=== PATIENT | male | born 1945 | race Caucasian/White ===

== ENCOUNTER → 2019-01-05 | Outpatient (CLI) | payer MEDICARE, BC, SELFPAY ==
[2018-12-26 08:29] VITALS: BMI 34.2
[2019-01-05 11:18] LABS: Absolute Lymphocyte Count 0.92 X10^3/uL (0.83-4.51); Absolute Neutrophil Count 3.7 X10^3/uL (2.0-7.7); Basophil# 0.01 X10^3/uL; Basophil% 0.2 % (0-1); Eosinophil# 0.02 X10^3/uL; Eosinophils% 0.3 % (0-5); Hematocrit 42.1 % (40-54); Hemoglobin 14.2 g/dL (13.0-16.5); Lymphocyte # 0.92 X10^3/ul (4.0); Lymphocyte % 15.2 % (19-41); Mean Corp Hgb Conc 33.7 g/dL (32-36); Mean Corpuscular Hgb 30.7 pg (27.0-32.0); Mean Corpuscular Volume 90.9 fL (80-94); Mean Platelet Vol. 10.8 fl (6.2-12.0); Monocyte# 1.36 X10^3/uL; Monocyte% 22.4 % (0-10); NRBC Flagged by Analyzer 0 % (0-5); Neutrophil # 3.73 X10^3/uL (2.7-7.7); Neutrophil % 61.4 % (47-70); Platelet Count 133 K/mm3 (150-450); RBC Distribution Width CV 15.9 % (11.6-14.6); RBC Distribution Width SD 51.6 fl (35.1-43.9); Red Blood Count 4.63 M/mm3 (4.6-6.2); White Blood Count 6.1 K/mm3 (4.4-11.0)
== END | disposition home or self-care (01) ==
PROVIDERS: Family Provider Family Medicine; PCP Family Medicine
DX: C7A.8 Other malignant neuroendocrine tumors (principal); C73 Malignant neoplasm of thyroid gland
CPT/HCPCS: 36415; 85025

== ENCOUNTER 2019-01-10 08:14 | Emergency (ER) | payer MEDICARE, BC, SELFPAY ==
[2018-12-26 08:29] VITALS: BMI 34.2
[2019-01-10] VITALS (7 sets, daily range): BP systolic 115–136; BP diastolic 64–106; PULSE 62–63; RESP 15–18; TEMP 36.9; O2SAT 97–99; BMI 34.3
--- NOTE | 2019-01-10 08:39 | RAD_ITS ---
STUDY: X-RAY CHEST REASON FOR EXAM: Male, 73 years old. Chest pain and indigestion for one week. TECHNIQUE: Single AP portable view of the chest. COMPARISON: Prior comparison studies are not available for review at this time. FINDINGS: Vague density overlying the anterior right fourth rib likely due to summation of shadows. No focal infiltrate is seen. There is no demonstrated pleural abnormality. Normal size heart. Normal mediastinum and ramos. Normal visualized pulmonary arteries. Normal visualized aortic arch and descending thoracic aorta. The thoracic spine is not well-visualized. Normal visualized ribs, clavicles, and shoulders. There is no demonstrated abnormality of the visualized soft tissue structures of the upper abdomen. RAD/Chest 1 View (Portable) IMPRESSION: No active pulmonary disease. Electronically Signed: Alvaro Gallo MD at 9:11 EDT Tel , Service support ,
--- NOTE | 2019-01-10 08:39 | EKG12_ITS ---
Test Reason : REPEAT Blood Pressure : / mmHG Vent. Rate : 059 BPM Atrial Rate : 300 BPM P-R Int : 000 ms QRS Dur : 086 ms QT Int : 418 ms P-R-T Axes : 037 009 019 degrees QTc Int : 413 ms Atrial FLutter with paced rhythm and NSR Otherwise normal ECG Confirmed by TAMMY FORTE, AV ([id number]), international editorial producer LUIS DANIEL BRAVO ([id number]) on 01/12/2019 11:42:21 AM Referred By: YUMIKO Confirmed By:AV MUNOZ MD
[2019-01-10 08:53] LABS: Absolute Lymphocyte Count 0.84 X10^3/uL (0.83-4.51); Absolute Neutrophil Count 3.1 X10^3/uL (2.0-7.7); Basophil# 0.02 X10^3/uL; Basophil% 0.4 % (0-1); Eosinophil# 0.59 X10^3/uL; Eosinophils% 10.7 % (0-5); Hematocrit 38.9 % (40-54); Lymphocyte # 0.84 X10^3/ul (4.0); Lymphocyte % 15.2 % (19-41); Mean Corp Hgb Conc 33.4 g/dL (32-36); Mean Corpuscular Hgb 30.9 pg (27.0-32.0); Mean Corpuscular Volume 92.4 fL (80-94); Mean Platelet Vol. 9.9 fl (6.2-12.0); Monocyte# 0.96 X10^3/uL; Monocyte% 17.4 % (0-10); NRBC Flagged by Analyzer 0 % (0-5); Neutrophil # 3.09 X10^3/uL (2.7-7.7); Neutrophil % 55.9 % (47-70); Platelet Count 106 K/mm3 (150-450); RBC Distribution Width CV 16.5 % (11.6-14.6); RBC Distribution Width SD 55.4 fl (35.1-43.9); Red Blood Count 4.21 M/mm3 (4.6-6.2); White Blood Count 5.5 K/mm3 (4.4-11.0)
[2019-01-10 09:06] LABS: Anion Gap 9 (5-15); BUN 15 mg/dL (7-18); BUN/Creat Ratio 18.9 RATIO (10-20); Calcium,Total 7.9 mg/dL (8.5-10.1); Chloride 109 mmol/L (98-107); Creatinine, Serum 0.79 mg/dL (0.70-1.30); EST Glomerular Filtration Rate 101 mL/min (>60); Est Glom Filt Rate - Afr Amer 122 mL/min (>60); Estimated Creatinine Clearance 67.98 ml/min; Glucose 306 mg/dL (74-106); Potassium 4.2 mmol/L (3.5-5.1); Sodium Level 141 mmol/L (136-145)
[2019-01-10] MEDS: Mag Hydrox/Al Hydrox/Simeth 30 ML UDC PO (09:20)
--- NOTE | 2019-01-10 09:25 | EKG12_ITS ---
Test Reason : CP Blood Pressure : / mmHG Vent. Rate : 061 BPM Atrial Rate : 061 BPM P-R Int : 174 ms QRS Dur : 092 ms QT Int : 424 ms P-R-T Axes : 022 015 020 degrees QTc Int : 426 ms Normal sinus rhythm Normal ECG Confirmed by TAMMY FORTE, AV ([id number]), editor book LUIS DANIEL BRAVO ([id number]) on 01/12/2019 11:42:32 AM Referred By: NADIA Confirmed By:AV MUNOZ MD
--- NOTE | 2019-01-10 12:44 | ED.VISSUMM ---
- ER Visit Summary Date of Service: 01/10/19 Chief Complaint: Chest pain History of Present Illness: The patient is a 73 M who states for the past week he has had indigestion. He tells me his constant family tells me is been intermittent. They tell me that because at times he does not complain about it. Tells me he has been taking Tums and has been helping. He has not had any problems with food until this morning when he had Cheerios and a banana and felt that his indigestion-like sensation was worse. There is some nitroglycerin with no relief. He has nitroglycerin because he tells me several years ago he was told he had a small heart attack. He had a cardiac cath did not place a stent because it was a small very peripheral artery that was involved. Tells me that he is getting ready to undergo treatment for medullary thyroid cancer. Is a diabetic. He is on Eliquis and has not missed any doses. Denies any shortness of breath or back pain. Notes he has a blood clot in the right leg Physical Examination: Afebrile vital signs are stable Gen: Well-nourished well-developed Head: Normocephalic atraumatic Eyes: Perrl EOMI ENT: TMs clear no rhinorrhea moist mucous membranes Neck: Supple no lymphadenopathy no JVD nontender CVS: Regular rate rhythm no murmurs normal S1-S2 Respiratory: No distress clear to auscultation bilaterally chest nontender Abdomen: Soft nontender nondistended normal bowel sounds no masses Back: Nontender Extremity: Nontender no edema Skin: Normal color no rash Neuro: alert orientated ?3 CN II-XII intact normal strength sensation Psych: Normal affect normal mood Test Results: EKG sinus at a rate of 61. CBC negative chemistries with glucose 306. 2 sets of cardiac enzymes 3 hours apart were negative. Chest x-ray negative. Emergency Department Course and Treatment: Patient received a GI cocktail which helped some. We watched him on the monitor he was apparently changed rhythms. I obtained a repeat EKG/rhythm strip shows him to be going to a junctional rhythm and back into a sinus rhythm. He is on diltiazem 360 mg and metoprolol 50 mg twice a day. I spoke with cardiology and they recommend that he cut his metoprolol to 25 mg twice a day. Patient notes that this is understanding. He is to see cardiology early next week (Saturday or Saturday). The patient most likely does have a degree of indigestion. He does not have any evidence of bleeding. Impression: 1. Chest pain 2. Dysrhythmia This note was generated with [employer] dictation software. It may contain incorrect words, spelling, and punctuation that were not noted in review of the chart prior to signing ED Disposition - Plan for ED Patient: Disposition: Home or Assisted Living Instructions: CHEST PAIN, Uncertain Cause Prescriptions: Sucralfate [Carafate] 1 gm PO 4X/DAY #56 tab Prescription Printed Referrals: Fran Harrison MD [STAFF PHYSICIAN] - As soon as possible Additional Instructions: Decrease your metoprolol to 25 mg twice a day. You need to call the ext js developer office on Saturday and let them know you are to be seen in the next couple days. This was discussed with the on-call ext js developer today.
== END 2019-01-10 12:57 | disposition home or self-care (01) ==
PROVIDERS: Emergency Provider Emergency Medicine; Family Provider Family Medicine; PCP Family Medicine
DX: R07.9 Chest pain, unspecified (principal); I49.9 Cardiac arrhythmia, unspecified; C73 Malignant neoplasm of thyroid gland; E11.9 Type 2 diabetes mellitus without complications; I25.2 Old myocardial infarction; K21.9 Gastro-esophageal reflux disease without esophagitis; I10 Essential (primary) hypertension; Z87.891 Personal history of nicotine dependence; Z86.718 Personal history of other venous thrombosis and embolism; Z79.02 Long term (current) use of antithrombotics/antiplatelets; Z79.84 Long term (current) use of oral hypoglycemic drugs; Z79.899 Other long term (current) drug therapy
CPT/HCPCS: 71045; 80048; 84484; 85025; 93005; 99285; A4216

== ENCOUNTER → 2019-03-18 15:11 | Outpatient (CLI) | payer MEDICARE, BC, SELFPAY ==
[2019-03-18 09:32] VITALS: BMI 30.7
--- NOTE | 2019-03-18 15:16 | RAD_ITS ---
STUDY: X-RAY - THORACIC SPINE REASON FOR EXAM: Male, 73 years old. Back pain for 3 weeks TECHNIQUE: 3 view(s) of the thoracic spine were obtained. COMPARISON: None. FINDINGS: There is an increase in the normal thoracic kyphosis. There is no substantial scoliosis. There is demineralization of the thoracic spine with endplate spondylosis. There is multilevel disc space narrowing of the thoracic spine. No compression fracture. The soft tissue structures are unremarkable. RAD/Thoracic Spine 3 Views IMPRESSION: 1. No compression fracture. 2. Degenerative disc disease. 3. Exaggerated thoracic kyphosis. Electronically Signed: Chago Galvan MD (Brooks) at 16:59 EST , Service support ,
--- NOTE | 2019-03-18 15:20 | RAD_ITS ---
STUDY: X-RAY CHEST REASON FOR EXAM: Male, 73 years old. Cough for 3 weeks TECHNIQUE: PA and lateral views of the chest. COMPARISON: 01/10/2019 FINDINGS: No airspace consolidation, pleural effusion or obvious nodule. There is no demonstrated pleural abnormality. Normal size heart. Normal mediastinum and ramos. Normal visualized pulmonary arteries. There is atherosclerotic calcification of the aortic arch with tortuosity. There are diffuse degenerative changes of the visualized thoracic spine. Old right rib fracture is stable. There is no demonstrated abnormality of the visualized soft tissue structures of the upper abdomen. RAD/Chest PA and Lateral IMPRESSION: No airspace disease or pleural effusion. Stable exam. Electronically Signed: Chago Galvan MD (Brooks) at 16:48 EST , Service support ,
== END ==
PROVIDERS: Family Provider Family Medicine; PCP Family Medicine; Referring Provider Family Medicine; Visit Provider Family Medicine
DX: Z51.11 Encounter for antineoplastic chemotherapy (principal); R05 Cough; M54.6 Pain in thoracic spine; C90.02 Multiple myeloma in relapse; C7A.8 Other malignant neuroendocrine tumors; C73 Malignant neoplasm of thyroid gland
CPT/HCPCS: 71046; 72072; 80053; 82784; 83883; 84550; 85025; 86334; 96376; 96413; 96415; J7040; J7050; A4216; J9145

== ENCOUNTER 2019-03-22 06:35 | Inpatient (IN) | payer MEDICARE, BC, SELFPAY ==
[2019-03-18 09:32] VITALS: BMI 30.7
[2019-03-22] VITALS (40 sets, daily range): BP systolic 80–127; BP diastolic 47–91; PULSE 115–159; RESP 12–30; TEMP 36.4–38.1; O2SAT 86–100; BMI 30.9; BMI 30.7
--- NOTE | 2019-03-22 06:42 | EKG12_ITS ---
Test Reason : DYSRHYTHMIA Blood Pressure : / mmHG Vent. Rate : 148 BPM Atrial Rate : 141 BPM P-R Int : 000 ms QRS Dur : 090 ms QT Int : 286 ms P-R-T Axes : 000 055 014 degrees QTc Int : 449 ms Atrial fibrillation with rapid ventricular response Septal infarct , age undetermined Abnormal ECG Confirmed by TAMMY FORTE, AV ([id number]), editor sound LUIS DANIEL BRAVO ([id number]) on 03/23/2019 2:51:48 PM Referred By: Birdie Urban Confirmed By:AV MUNOZ MD
--- NOTE | 2019-03-22 06:44 | ED.VIS.DYS ---
History of Present Illness Chief Complaint: Shortness of Breath Informant: Patient, EMS Onset: Days - 2-3 Activity at onset: - - gradual onset, worsening Quality: - - short of breath Current Severity: Severe Maximum Severity: Severe Worsened by: Coughing, Exertion Relieved by: Nothing Associated Symptoms: Cough. Negative for: Rhinorrhea, Sore throat Chest Pain: None Narrative: Fell like he was developing a respiratory infection and saw his doctor with a chest x-ray the day before yesterday, it was unremarkable. He feels like he is getting worse. He has no history of chronic lung disease and is on no oxygen at home. No swelling in his legs or orthopnea. He has a history of heart disease, states he had a heart attack for which a stent was not indicated in 2004. Denies any chest pain. 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 tumor KRAS mutated. 06/2016 left upper lobectomy and LN dissection (per note from Dr Nicolas) (6) Multiple myeloma in relapse Status: Chronic (7) Paroxysmal atrial fibrillation Status: Chronic (8) Thyroid cancer Status: Chronic (9) History of non-ST elevation myocardial infarction (NSTEMI) Status: Resolved Past Medical History - Allergies and Home Meds Allergies/Adverse Reactions: Allergies No Known Allergies Allergy (Verified 03/22/19 06:45) Primary Care Physician: Mohamud Guzman MD [Primary Care Provider] - Smoking Status: Former smoker Drugs: None Review of Systems General: Reports: Malaise. Denies: Chills, Fever, Sweats Eyes: Denies: Visual changes - bilaterally, Diplopia ENT: Denies: Bilateral ear pain, Rhinorrhea, Sore throat Cardiovascular: Denies: Chest pain, Palpitations Respiratory: Reports: Dyspnea, Cough, Dyspnea on exertion. Denies: Sputum Gastrointestinal: Reports: Nausea. Denies: Abdominal pain, Vomiting, Diarrhea, Melena, Hematochezia Genitourinary: Denies: Dysuria, Hematuria, Frequency Musculoskeletal: Denies: Neck pain, Back pain, Swelling, Extremity Pain Skin: Denies: Rash, Wounds Neurological: Denies: Headache, Weakness, Numbness Physical Exam Inital Vital Signs reviewed: Yes General: Well nourished, Well developed, Acute Distress - respiratory Head: Normocephalic, Atraumatic Eyes: Perrl, EOMI ENT: Moist mucous membranes, No rhinorrhea Neck: Supple, Nontender, No lymphadenopathy, No JVD Cardiovascular: No murmurs, Irregular, Tachycardia Respiratory: Chest nontender, Rales - left base, Wheezing - mild expiratory diffusely, - - Respiratory distress, speaking in 3-5 word sentences Abdomen: Soft, Nontender, Nondistended, Normal bowel sounds. Negative for: Pulsatile mass Back: Nontender, Normal Inspection Extremities: Nontender, No edema. Negative for: Calf Tenderness Skin: Normal color, No rash, No Trauma Neurological: Alert, Oriented x3, Cranial nerves II-XII grossly intact, Normal Strength, Normal Sensation Psychological: Normal affect, Normal Mood Diagnostic/Tx/Re-eval Impressions Chest X-Ray 03/22/19 06:47 IMPRESSION: Interval development of airspace disease in the lower lobes. Electronically Signed: Shahriar Vijay, at 7:09 EST Tel , Service support , 03/22/19 06:47 Chest 1 View (Portable) [RAD] Stat Laboratory Results 03/22/19 03/22/19 03/22/19 06:55 06:55 06:55 WBC 3.4 L RBC 4.68 Hgb 14.8 Hct 43.3 MCV 92.5 MCH 31.6 MCHC 34.2 RDW Std Deviation 65.6 H RDW Coeff of Mary [place] 19.4 H Plt Count 108 L MPV 10.1 Immature Gran % (Auto) 0.900 Neut % (Auto) 28.0 L Lymph % (Auto) 58.4 H [place] % (Auto) 10.3 H Eos % (Auto) 2.1 Baso % (Auto) 0.3 Absolute Neuts (auto) 1.0 L Absolute Lymphs (auto) 1.99 Nucleated RBC % 0 Specimen Type Sample Site pH Bicarbonate Actual POC Total CO2 Base Excess O2 Saturation ABG pCO2 ABG pO2 Hugo Test O2 Delivery Device Liter Flow Blood Gas Notified Whom Blood Gas Notified Time Sodium 138 Potassium 3.9 Chloride 107 Carbon Dioxide 19.0 L Anion Gap 12 BUN 18 Creatinine 1.03 Estim Creat Clear Calc 66.00 Est GFR (MDRD) Af Amer 90 Est GFR (MDRD) Non-Af 75 BUN/Creatinine Ratio 17.5 Glucose 124 H Lactic Acid 3.9 H Calcium 7.6 L Total Bilirubin 1.60 H AST 20 ALT 33 Alkaline Phosphatase 122 H Troponin I < 0.015 Total Protein 5.3 L Albumin 2.4 L Globulin 2.9 Albumin/Globulin Ratio 0.8 L 03/22/19 07:08 WBC RBC Hgb Hct MCV MCH MCHC RDW Std Deviation RDW Coeff of Mary Ellen Plt Count MPV Immature Gran % (Auto) Neut % (Auto) Lymph % (Auto) [place] % (Auto) Eos % (Auto) Baso % (Auto) Absolute Neuts (auto) Absolute Lymphs (auto) Nucleated RBC % Specimen Type ART Sample Site L Radial pH 7.49 H Bicarbonate Actual 20.0 L POC Total CO2 21 Base Excess -3 L O2 Saturation 95 ABG pCO2 26.6 L ABG pO2 66 L Hugo Test POS O2 Delivery Device Nasal Can Liter Flow 4.0 Blood Gas Notified Whom ED MD Blood Gas Notified Time 700 Sodium Potassium Chloride Carbon Dioxide Anion Gap BUN Creatinine Estim Creat Clear Calc Est GFR (MDRD) Af Amer Est GFR (MDRD) Non-Af BUN/Creatinine Ratio Glucose Lactic Acid Calcium Total Bilirubin AST ALT Alkaline Phosphatase Troponin I Total Protein Albumin Globulin Albumin/Globulin Ratio - Rhythm Strip Rhythm Strip: A-fib Rate: 140 Ectopy: None - EKG Initial EKG Interpretation: No Acute Injury Pattern, Atrial Fibrillation - w/ RVR Treatment - Dyspnea: Oxygen, Albuterol, Atrovent, Antibiotics - Medical Decision Making Patient is in A. fib with RVR, pressure is borderline. I gave him one breathing treatment to try to avoid BiPAP/respiratory failure, it helped very little and increase his heart rate some, not a lot but he is in the 140-150 range, and his pressure is dropping into the 80s. He is mentating well and keenly alert. His chest x-ray shows obvious pneumonia on the left side. This is a gillis difference compared with his chest x-ray from 2 days ago. ABG shows acute mild respiratory alkalosis without hypercapnia, which is relatively reassuring. I discussed with buckle stringer Dr. Alas, he recommends against giving digoxin for his A. fib with RVR at this time, and just treating his lack of preload with IV fluids for now. He agrees with mechanical ventilation which I am having respiratory starts in the form of BiPAP 01/24. We will continue bolusing him with IV fluids. The rest of the labs are still pending at this time I anticipate ICU admission. ED Disposition - Plan for ED Patient: Disposition: Acute Care Hospital [facility] Diagnosis: Acute respiratory failure with hypoxia, CAP (community acquired pneumonia), Atrial fibrillation with rapid ventricular response, Sepsis due to pneumonia, Severe sepsis Referrals: Mohamud Guzman MD [Primary Care Provider] -
--- NOTE | 2019-03-22 06:47 | RAD_ITS ---
STUDY: X-RAY CHEST REASON FOR EXAM: Male, 73 years old. Shortness of breath TECHNIQUE: Single frontal view of the chest was obtained. COMPARISON: March 18, 2019 FINDINGS: There is been interval development of airspace disease in the lower lobes bilaterally. There is no demonstrated pleural abnormality. Normal size heart. Normal mediastinum and ramos. Normal visualized pulmonary arteries. Normal visualized aortic arch and descending thoracic aorta. Normal visualized thoracic spine. Normal visualized ribs, clavicles, and shoulders. There is no demonstrated abnormality of the visualized soft tissue structures of the upper abdomen. RAD/Chest 1 View (Portable) IMPRESSION: Interval development of airspace disease in the lower lobes. Electronically Signed: Shahriar Linares, at 7:09 EST Tel , Service support ,
[2019-03-22] MEDS: Ipratropium/Albuterol Sulfate 3 ML AMPUL.NEB INHALATION (06:50)
[2019-03-22 07:11] LABS: Allen Test POS; Base Excess -3 mmol/L (-2 to +2); Blood Gas Specimen Type ART; O2 Delivery Device Nasal Can; PO2 66 mmHG (75-100); SITE L Radial; SO2 95 % (95-99); Time Given 700; Total Carbon Dioxide 21 mmol/L; pCO2 26.6 mmHg (35-45); pH 7.49 (7.35-7.45)
[2019-03-22] MEDS: Ondansetron 4 MG/2 ML Vial IV ×2 (07:16→12:43)
[2019-03-22] MEDS: levoFLOXacin IV 750 MG/150 ML BAG 100 MG IV (07:16)
[2019-03-22] MEDS: 0.9% Normal Saline 1,000 ML 999 ML IV ×3 (07:22→09:25)
--- NOTE | 2019-03-22 07:25 | HP.PCM_ITS ---
History of Present Illness Date of Admission: 03/22/19 Chief Complaint: shortness of breath The patient is a 73 year old M with a PMH as listed. He was admitted with a complaint of shortness of breath which had been going on for a couple of days prior to admission. Shortness of breath gradually worsened and he had associated cough which was nonproductive. He had palpitations but denied any fever or chills and denied any chest pain, abdominal pain, lower extremity swelling orthopnea or PND. He decided to come into the ED today as shortness of breath was persistent. He had seen his PCP 2 days prior to admission and had a chest x-ray which was unremarkable. On admission in the ED, vitals were signifi cant for tachycardia and tachypnea and was noted to be in A. fib with RVR with heart rate going up to the 150s. He was requiring 5 L of oxygen. Chemistry was significant for bicarb of 19 and lactic acid of 3.9. Blood pressure was 82/48 at time of review. Chemistry showed white cell count of 3.4 and platelets of 108 was otherwise unremarkable. EKG showed A. fib with RVR. Initial troponin was negative and BNP was only 107.6. Chest x-ray showed interval development of airspace disease in the lower lobes. Patient has been admitted to be managed for septic shock due to community-acquired pneumonia and A. fib with RVR likely precipitated by septic shock. 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 tumor KRAS mutated. 06/2016 left upper lobectomy and LN dissection (per note from Dr Nicolas) Medical History: Medical History (Last Reviewed 03/18/19 @ 09:31 by Nhi Lee) DVT of lower extremity (deep venous thrombosis) (Chronic) Onset Date: 2016 I82.409 right Paroxysmal atrial fibrillation (Chronic) I48.0 Atherosclerotic heart disease [place] coronary artery w/angina pectoris (Chronic) I25.119 History of non-ST elevation myocardial infarction (NSTEMI) (Resolved) Onset Date: 2004 I25.2 Essential (primary) hypertension (Chronic) I10 Hyperlipidemia (Chronic) E78.5 Multiple myeloma in relapse (Chronic) C90.02 Thyroid cancer (Chronic) C73 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 tumor KRAS mutated. 06/2016 left upper lobectomy and LN dissection (per note from Dr Nicolas) Diabetes E11.9 GERD (gastroesophageal reflux disease) K21.9 Gout M10.9 History of chemotherapy Z92.21 Hypothyroidism E03.9 Multiple myeloma C90.00 dx 2016 Muscle cramps R25.2 Vitamin D deficiency E55.9 abnormal PET 12/02/18 [facility] (scanned) Genetic testing Z13.79 underwent germline genetic testing. per Dr Nicolas note Allergies No Known Allergies Allergy (Verified 03/22/19 06:45) Home Medications: Ambulatory Orders Medication Instructions Recorded Albuterol Inhaler [Ventolin Hfa] 108 mcg INHALATION PRN PRN 12/12/18 Allopurinol [Zyloprim] 300 mg PO DAILY 12/12/18 Atorvastatin Calcium [Lipitor] 40 mg PO QHS 12/12/18 Calcitriol 0.25 mcg PO DAILY 12/12/18 Calcium 500-Vit D3 200 Tablet 2 tab PO DAILY 12/12/18 Cholecalciferol (Vitamin D3) 2,000 unit PO DAILY 12/12/18 [Vitamin D3] Desloratadine [Clarinex] 5 mg PO DAILY 12/12/18 Ezetimibe [Zetia] 10 mg PO DAILY 12/12/18 Lansoprazole [Prevacid] 30 mg PO DAILY 12/12/18 Lumigan 0.01% 0.01 % EACH EYE QHS 12/12/18 Nitroglycerin [Nitrostat] 0.4 mg SL PRN PRN 12/12/18 Potassium Chloride [K-Dur] 20 meq PO DAILY 12/12/18 Pregabalin [Lyrica] 50 mg PO BID 12/12/18 Vitamin B Complex [B Complex] 1 tab PO DAILY 12/12/18 Daratumumab [Darzalex] 100 mg IV QMONTH 01/10/19 Diltiazem HCl [Cardizem Cd] 360 mg PO DAILY 01/10/19 Pomalidomide [Pomalyst] 1 mg PO DAILY 01/10/19 Sucralfate [Carafate] 1 gm PO 4X/DAY #56 tab 01/10/19 Valacyclovir HCl [Valtrex] 500 mg PO DAILY 01/10/19 metoprolol tartrate 50 mg tablet 25 mg PO BID tab 01/12/19 levothyroxine 150 mcg tablet 150 mcg PO DAILY #90 tab 01/14/19 Apixaban [Eliquis] 5 mg PO BID 03/22/19 Cometriq 20 mg PO DAILY 03/22/19 Surgical History: Surgical History (Last Reviewed 03/18/19 @ 09:31 by Nhi Lee) 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 H/O thyroidectomy Z90.09 05/2018 History of bronchoscopy Z98.890 03/29/16 06/29/16 08/30/16 10/20/18 History of cataract surgery Z98.49 left 2016 right 2010 History of left heart catheterization Onset Date: 2004 Z98.89 History of pneumonectomy Z98.890, Z90.2 wedge resection left upper lung lobe S/P fine needle aspiration Z98.890 08/2018 mediastinal lymph node 3.1cm revealed neuroendocrine neoplasm positive for synaptophysin and chromagranin, and negative for calcitonin-per note Dr Nicolas history of renal biopsy Lives: Spouse/ Significant Other Smoking Status: Former smoker Alcohol: None Drugs: None - *Family History Maternal Family History: Family History (Last Reviewed 02/19/19 @ 08:41 by Nhi Lee) Mother Hypertension Father Multiple myeloma Review of Systems Constitutional: Reports: Malaise, Weakness, Fatigue. Denies: Anorexia, Chills, Fever Eyes: Denies: Blurred vision HEENT: Denies: Head Aches, Sinus Congestion, Sinus Drainage Cardiovascular: Denies: Chest Pain, Palpitations Respiratory: Reports: Cough, Shortness of Breath, Shortness of breath at rest, Shortness of breath upon exertion, Wheezing. Denies: Pleuritic Pain, Sputum production Gastrointestinal: Denies: Abdominal Pain, Nausea, Vomiting Genitourinary: Denies: Dysuria Musculoskeletal: Denies: Joint Pain, Joint Tenderness Skin: Denies: Rash, Wounds Neurological: Denies: Numbness, Tingling, Focal weakness Psychiatric: Denies: Anxiety, Depression, Homicidal Ideations, Suicidal Ideations Hematologic/ Lymphatic: Denies: Easy Bruising, Easy Bleeding VTE Information - Inpt Only VTE Present on Admission: No VTE Pharm Prophylaxis ordered?: Yes Patient Problems: Active and Suspected Problems (Last Reviewed 03/18/19 @ 09:31 by Nhi Lee) Acute respiratory failure with hypoxia (Acute) CAP (community acquired pneumonia) (Acute) Atrial fibrillation with rapid ventricular response (Acute) Sepsis due to pneumonia (Acute) Severe sepsis (Acute) - Physical Exam Vitals/I&O's: Vital Signs Temp Pulse Resp BP Pulse Ox 98.4 F 159 H 24 H 82/48 L 91 03/22/19 06:37 03/22/19 07:10 03/22/19 07:10 03/22/19 07:10 03/22/19 07:10 Oxygen Flow Rate (L/min) 5 Oxygen Delivery Method Nasal Cannula Weight: 221 lb 5.506 oz Body Mass Index (BMI) 30.9 General: Alert, Oriented x3, Cooperative, - - in moderate respiratory distress HEENT: Atraumatic, PERRLA, EOMI, Normocephalic Oral: Dry Mucosa Neck: Supple, No JVD, Negative Carotid Bruits Lungs: - - decreased breath sounds in all lung landeros, no wheezes or crackles. on CPAP at time of review Cardiovascular: Normal S1, Normal S2, No murmurs, Irregular Rate - Afib with RVR, Tachycardic Abdomen: Bowel Sounds Present, Soft, Non Tender, Non-Distended, No Hepato- splenomegaly Extremities: No clubbing, No cyanosis, No edema, Capillary Refill Less than 3 S econds Skin: No rashes, No breakdown Musculoskeletal: No Tenderness to Palpation of Joints or Extremities Lymphatic: No Cervical, Supraclavicular, or Inguinal Adenopathy Neurological: Cranial nerves II-XII grossly intact, Neuro grossly intact, Motor Exam 5/5 strength throughout Psych/Mental Status: Normal Affect, Appropriate, Alert and oriented to time, place, person, mood and affect Laboratory Results 03/22/19 06:55: WBC Pending, RBC Pending, Hgb Pending, Hct Pending, MCV Pending, MCH Pending, MCHC Pending, RDW Std Deviation Pending, RDW Coeff of [place] Pending, Plt Count Pending, Neut % (Auto) Pending, Absolute Neuts (auto) Pending 03/22/19 06:55: PT Pending, INR Pending, APTT Pending 03/22/19 06:55: Sodium Pending, Potassium Pending, Chloride Pending, Carbon Dioxide Pending, Anion Gap Pending, BUN Pending, Creatinine Pending, Est GFR (MDRD) Af Amer Pending, Est GFR (MDRD) Non-Af Pending, BUN/Creatinine Ratio Pending, Glucose Pending, Calcium Pending, Total Bilirubin Pending, AST Pending, ALT Pending, Alkaline Phosphatase Pending, Troponin I Pending, Total Protein Pending, Albumin Pending 03/22/19 06:55: Lactic Acid Pending 03/22/19 06:55: B-Natriuretic Peptide Pending 03/22/19 07:08: Specimen Type ART, Sample Site L Radial, pH 7.49 H, Bicarbonate Actual 20.0 L, POC Total CO2 21, Base Excess -3 L, O2 Saturation 95, ABG pCO2 26.6 L, ABG pO2 66 L, Hugo Test POS, O2 Delivery Device Nasal Can, Liter Flow 4.0, Blood Gas Notified Whom ED MD, Blood Gas Notified Time 700 Diagnostic Data Chest X-Ray 03/22/19 06:47 IMPRESSION: Interval development of airspace disease in the lower lobes. Electronically Signed: Shahriar Linares, at 7:09 EST Tel , Service support , Current Medications Levofloxacin (Levaquin Iv) 750 mg in 150 mls @ 100 mls/hr IV X1 ONE Stop: 03/22/19 08:12 Last Admin: 03/22/19 07:16 Dose: 100 mls/hr Documented by: Sodium Chloride () 500 mls @ 999 mls/hr IV .Q31M DWAYNE Stop: 03/22/19 08:00 Last Admin: 03/22/19 07:23 Dose: 999 mls/hr Documented by: Sodium Chloride () 1,000 mls @ 999 mls/hr IV .Q1H1M ONE Stop: 03/22/19 08:17 Last Admin: 03/22/19 07:22 Dose: 999 mls/hr Documented by: Assessment/Plan All Active Problems (Last Reviewed 03/18/19 @ 09:31 by Nhi Lee) Acute respiratory failure with hypoxia (Acute) CAP (community acquired pneumonia) (Acute) Atrial fibrillation with rapid ventricular response (Acute) Sepsis due to pneumonia (Acute) Severe sepsis (Acute) Junctional rhythm (Acute 01/10/19) History of non-ST elevation myocardial infarction (NSTEMI) (Resolved 2004) 73 y/o male admitted with a complaint of worsening shortness of breath 1. Acute hypoxic respiratory failure due to community acquired pneumonia * admit to ICU * start on IV ceftriaxone and azithromycin * blood cultures adn respiratory panel obtained; urine for strep and legionella * sputum culture * CXR showed interval development of pneumonia in lower lung landeros * SIRS criteria- 2/4 (tachypnea and tachycardia) * installation and repair technician consulted * titrate oxygen to maintain sats>90% * breathing treatments with duonebs * IV solumedrol * 2. Septic shock due to community acquired pneumonia * BP was in 80s systolic at time of review * lactic acid was 3.9 * hydrate with IVF as per septic shock protocol (30ml/kg) * on IV ceftriaxone and azithromycin * blood, sputum cultures pending. * repeat lactic acid per septic shock protocol * critical; care on board * 3. Afib with RVR * does have a history of Afib * HR was in 150s in ED; EKG showed no actue ST changes * initial troponin was negative * A. fib with RVR likely precipitated by septic shock. * Hydrate as per sepsis protocol with IV fluids. Hold off on Cardizem and metoprolol for now on account of hypotension. * On Eliquis. * 4. Hyperlipidemia: On ezetimibe. 5. Hypothyroidism: On Synthroid. 6. History of multiple myeloma: Currently undergoing treatment. Follow-up with oncologist on discharge. On daratumumab. DVT prophylaxis: on eliquis GI prophylaxis: on PPI Code status: full code * Patient counseled extensively about different types of CODE STATUS including full code, DNR CCA and DNR CCA. Patient elects to be full code. * Total [id number] time 17 minutes. Code Visit Inpatient E&M: 63334 Init Hosp L3 Procedures: 06275 Advncd Care Plan 30 Min
[2019-03-22 07:27] LABS: Absolute Lymphocyte Count 1.99 X10^3/uL (0.83-4.51); Basophil# 0.01 X10^3/uL; Basophil% 0.3 % (0-1); Eosinophil# 0.07 X10^3/uL; Eosinophils% 2.1 % (0-5); Hematocrit 43.3 % (40-54); Hemoglobin 14.8 g/dL (13.0-16.5); Lymphocyte # 1.99 X10^3/ul (4.0); Lymphocyte % 58.4 % (19-41); Mean Corp Hgb Conc 34.2 g/dL (32-36); Mean Corpuscular Hgb 31.6 pg (27.0-32.0); Mean Corpuscular Volume 92.5 fL (80-94); Mean Platelet Vol. 10.1 fl (6.2-12.0); Monocyte# 0.35 X10^3/uL; Monocyte% 10.3 % (0-10); NRBC Flagged by Analyzer 0 % (0-5); Neutrophil # 0.96 X10^3/uL (2.7-7.7); POSITIVE DIFFERENTIAL YES; POSITIVE MORPHOLOGY YES; Platelet Count 108 K/mm3 (150-450); RBC Distribution Width CV 19.4 % (11.6-14.6); RBC Distribution Width SD 65.6 fl (35.1-43.9); Red Blood Count 4.68 M/mm3 (4.6-6.2); White Blood Count 3.4 K/mm3 (4.4-11.0)
[2019-03-22 07:34] LABS: Differential Indicated SCAN CRITERIA MET
[2019-03-22 07:44] LABS: ALB/GLOB Ratio 0.8 RATIO (0.9-2.4); AST(SGOT) 20 U/L (15-37); Alanine Aminotransfer ALT/SGPT 33 U/L (16-61); Albumin, Serum 2.4 g/dL (3.2-5.0); Alkaline Phosphatase 122 U/L (45-117); Anion Gap 12 (5-15); BUN 18 mg/dL (7-18); BUN/Creat Ratio 17.5 RATIO (10-20); Calcium,Total 7.6 mg/dL (8.5-10.1); Chloride 107 mmol/L (98-107); Creatinine, Serum 1.03 mg/dL (0.70-1.30); EST Glomerular Filtration Rate 75 mL/min (>60); Est Glom Filt Rate - Afr Amer 90 mL/min (>60); Globulin 2.9 g/dL (2.2-4.2); Glucose 124 mg/dL (74-106); Potassium 3.9 mmol/L (3.5-5.1); Protein, Total 5.3 g/dL (6.4-8.2); Sodium Level 138 mmol/L (136-145)
[2019-03-22 07:47] LABS: Lactic Acid 3.9 mmol/L (0.4-2.0)
[2019-03-22 07:49] LABS: International Normalized Ratio 1.6; Prothrombin Time (Protime)PT. 18.9 SECONDS (11.7-14.9)
[2019-03-22 07:50] LABS: Partial Thromboplast Time 36.5 Seconds (24.1-36.2)
[2019-03-22 07:51] LABS: Reactive Lymphocyte 1+
[2019-03-22 07:52] LABS: Anisocytosis 2+; Macrocytosis 1+; Microcytosis 1+; Ovalocyte 1+; Platelet Estimate SLT DEC (ADEQ); Poikilocytosis 1+
[2019-03-22 07:53] LABS: Differential Comment SCANNED
--- NOTE | 2019-03-22 07:58 | ED.RN ---
DR ANDRE NOTIFIED BP=88/55, FC=[id number]. 2L NS INFUSED. NEW ORDER RECEIVED FOR A 3RD LITER OF NS.
[2019-03-22 08:39] LABS: BNP,B-Type NATRIURETIC PEPTIDE 107.6 pg/mL (0-100)
[2019-03-22 10:05] LABS: Lactic Acid 2.5 mmol/L (0.4-2.0)
--- NOTE | 2019-03-22 10:09 | CON.PCM_ITS ---
Problem List (1) Acute respiratory failure with hypoxia Status: Acute (2) CAP (community acquired pneumonia) Status: Acute Qualifiers: Laterality: right Lung location: lower lobe of lung Qualified Code(s): J18.9 - Pneumonia, unspecified organism (3) Atrial fibrillation with rapid ventricular response Status: Acute (4) Sepsis due to pneumonia Status: Acute (5) DVT of lower extremity (deep venous thrombosis) Status: Chronic Comment: right (6) Atherosclerotic heart disease [place] coronary artery w/angina pectoris Status: Chronic (7) History of non-ST elevation myocardial infarction (NSTEMI) Status: Resolved (8) Essential (primary) hypertension Status: Chronic (9) Hyperlipidemia Status: Chronic (10) Multiple myeloma in relapse Status: Chronic (11) Thyroid cancer Status: Chronic (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 tumor KRAS mutated. 06/2016 left upper lobectomy and LN dissection (per note from Dr Nicolas) Reason for Consult Date of Consultation: 03/22/19 Reason for Consultation: Respiratory failure History of Present Illness: The patient is a 73 year old M, with past medical history listed below, who presented to [facility] on 03/22/2019 secondary to progressive shortness of breath. Patient reportedly has had a cough for approximately 1 week, but over the last 2 to 3 days has had rapid progression of shortness of breath to the point that he develops symptoms at rest. Patient reportedly has had a cough that is not very productive. Patient denies any rhinorrhea, sore throat and is unclear of fevers. Patient reportedly has his in hospice and is been very stressed recently. Patient reportedly does have a history of a left upper lobe resection secondary to cancer, but is not on supplemental oxygen at baseline. In the ER, patient was noted to be in A. fib with RVR. Chest x-ray was consistent with pneumonia and significantly different from 2 days ago. ABG was consistent with acute hypoxic respiratory failure, so patient was placed on BiPAP therapy. Patient also was noted to be hypotensive and was given 30 cc/kg IV fluids with improvement in blood pressure. Patient was admitted to the intensive care unit for further evaluation. Patient reports that he had seen his primary care physician in the last week with these symptoms. Patient states he had a chest x-ray that was read as normal and was using supportive care. Patient does report that he has a history of a left upper lobe resection secondary to what was thought to be metastatic thyroid cancer. Patient also is suffering from severe odynophagia associated with his chemotherapy for multiple myeloma. Patient has used Magic mouthwash, but is still having a 20 to 30 pound weight loss over the last month and a half. Patient denied any diarrhea, but did have some nausea and one episode of emesis. No casper aspiration was reported. Patient reportedly has had A. fib with severe illness previously. Patient also has a history of multiple thrombi, for which he is on chronic anticoagulation with Eliquis therapy. Patient did take that this morning. Did discuss CODE STATUS with patient and his son. Patient is open to temporary intubation and CPR if necessary, but would never agree to tracheostomy or prolonged intubation. Review of systems otherwise negative from a constitutional, HEENT, respiratory, cardiovascular, GI, genitourinary, musculoskeletal, skin, neurologic, psychiatric and hematologic system unless stated above. 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 tumor KRAS mutated. 06/2016 left upper lobectomy and LN dissection (per note from Dr Nicolas) Medical History: Medical History (Last Reviewed 03/18/19 @ 09:31 by Nhi Lee) DVT of lower extremity (deep venous thrombosis) (Chronic) Onset Date: 2016 I82.409 right Paroxysmal atrial fibrillation (Chronic) I48.0 Atherosclerotic heart disease [place] coronary artery w/angina pectoris (Chronic) I25.119 History of non-ST elevation myocardial infarction (NSTEMI) (Resolved) Onset Date: 2004 I25.2 Essential (primary) hypertension (Chronic) I10 Hyperlipidemia (Chronic) E78.5 Multiple myeloma in relapse (Chronic) C90.02 Thyroid cancer (Chronic) C73 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 tumor KRAS mutated. 06/2016 left upper lobectomy and LN dissection (per note from Dr Nicolas) Diabetes E11.9 GERD (gastroesophageal reflux disease) K21.9 Gout M10.9 History of chemotherapy Z92.21 Hypothyroidism E03.9 Multiple myeloma C90.00 dx 2016 Muscle cramps R25.2 Vitamin D deficiency E55.9 abnormal PET 12/02/18 [facility] (scanned) Genetic testing Z13.79 underwent germline genetic testing. per Dr Nicolas note Allergies No Known Allergies Allergy (Verified 03/22/19 06:45) Home Medications: Ambulatory Orders Medication Instructions Recorded Albuterol Inhaler [Ventolin Hfa] 108 mcg INHALATION PRN PRN 12/12/18 Allopurinol [Zyloprim] 300 mg PO DAILY 12/12/18 Atorvastatin Calcium [Lipitor] 40 mg PO QHS 12/12/18 Calcitriol 0.25 mcg PO DAILY 12/12/18 Calcium 500-Vit D3 200 Tablet 2 tab PO DAILY 12/12/18 Cholecalciferol (Vitamin D3) 2,000 unit PO DAILY 12/12/18 [Vitamin D3] Desloratadine [Clarinex] 5 mg PO DAILY 12/12/18 Ezetimibe [Zetia] 10 mg PO DAILY 12/12/18 Lansoprazole [Prevacid] 30 mg PO DAILY 12/12/18 Lumigan 0.01% 0.01 % EACH EYE QHS 12/12/18 Nitroglycerin [Nitrostat] 0.4 mg SL PRN PRN 12/12/18 Potassium Chloride [K-Dur] 20 meq PO DAILY 12/12/18 Pregabalin [Lyrica] 50 mg PO BID 12/12/18 Vitamin B Complex [B Complex] 1 tab PO DAILY 12/12/18 Daratumumab [Darzalex] 100 mg IV QMONTH 01/10/19 Diltiazem HCl [Cardizem Cd] 360 mg PO DAILY 01/10/19 Pomalidomide [Pomalyst] 1 mg PO DAILY 01/10/19 Sucralfate [Carafate] 1 gm PO 4X/DAY #56 tab 01/10/19 Valacyclovir HCl [Valtrex] 500 mg PO DAILY 01/10/19 metoprolol tartrate 50 mg tablet 25 mg PO BID tab 01/12/19 levothyroxine 150 mcg tablet 150 mcg PO DAILY #90 tab 01/14/19 Apixaban [Eliquis] 5 mg PO BID 03/22/19 Cometriq 20 mg PO DAILY 03/22/19 Surgical History: Surgical History (Last Reviewed 03/18/19 @ 09:31 by Nhi Lee) 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 H/O thyroidectomy Z90.09 05/2018 History of bronchoscopy Z98.890 03/29/16 06/29/16 08/30/16 10/20/18 History of cataract surgery Z98.49 left 2016 right 2010 History of left heart catheterization Onset Date: 2004 Z98.890 History of pneumonectomy Z98.890, Z90.2 wedge resection left upper lung lobe S/P fine needle aspiration Z98.890 08/2018 mediastinal lymph node 3.1cm revealed neuroendocrine neoplasm positive for synaptophysin and chromagranin, and negative for calcitonin-per note Dr Nicolas history of renal biopsy Smoking Status: Former smoker Drugs: None Review of Systems Comment: See HPI Patient Problems: Active and Suspected Problems (Last Reviewed 03/18/19 @ 09:31 by Nhi Lee) Acute respiratory failure with hypoxia (Acute) CAP (community acquired pneumonia) (Acute) Atrial fibrillation with rapid ventricular response (Acute) Sepsis due to pneumonia (Acute) Severe sepsis (Acute) Objective: All imaging was personally reviewed. Agree with infiltrates on chest x-ray. Patient reportedly had a stress test as an outpatient showing good exercise tolerance with an EF of 65%. Patient gets most of his care at [facility]. - Physical Exam Vitals/I&O's: Vital Signs Temp Pulse Resp BP Pulse Ox 36.4 C L 115 H 28 H 99/59 L 97 03/22/19 08:11 03/22/19 09:23 03/22/19 09:23 03/22/19 08:11 03/22/19 09:23 Oxygen Flow Rate (L/min) 5 Oxygen Delivery Method Bi-pap Weight: 99.79 kg Body Mass Index (BMI) 30.7 Intake and Output for Last 24 Hours 03/20/19 03/21/19 03/22/19 23:59 23:59 23:59 Intake Total 3150 / 3150 Balance 3150 / 3150 General: Alert, Oriented x3, Cooperative, - - Moderate conversational dyspnea. Fair BiPAP synchrony HEENT: Atraumatic, PERRLA, EOMI, Normocephalic, - - No scleral icterus or injection noted Oral: Moist Mucosa, No Gingival or Mucosal Lesions/ Ulcerations Neck: Supple, No JVD, No Nodes, Trachea Midline Lungs: No wheeze, No rales, Diminished, Rhonchi - Right base, - - Symmetric expansion Cardiovascular: Normal S1, Normal S2, No murmurs, Irregular Rate, No rub noted, No Gallop, Tachycardic Abdomen: Bowel Sounds Present, Soft, Non Tender, Non-Distended, Obese Extremities: No cyanosis, No edema, Clubbing, Diminished Peripheral Pulses Skin: No rashes, No breakdown Musculoskeletal: No Tenderness to Palpation of Joints or Extremities Lymphatic: No Cervical, Supraclavicular, or Inguinal Adenopathy Neurological: Cranial nerves II-XII grossly intact, Neuro grossly intact, Motor Exam 5/5 strength throughout Psych/Mental Status: Alert and oriented to time, place, person, mood and affect Microbiology Past 72 Hours 03/22/19 07:45 Mucosa - Nasopharyngeal Influenza Types A,B Direct FA (MELITON) - Final Laboratory Results 03/22/19 06:55: WBC 3.4 L, RBC 4.68, Hgb 14.8, Hct 43.3, MCV 92.5, MCH 31.6, MCHC 34.2, RDW Std Deviation 65.6 H, RDW Coeff of Mary Ellen 19.4 H, Plt Count 108 L, MPV 10.1, Immature Gran % (Auto) 0.900, Neut % (Auto) 28.0 L, Lymph % (Auto) 58.4 H, [place] % (Auto) 10.3 H, Eos % (Auto) 2.1, Baso % (Auto) 0.3, Absolute Neuts (auto) 1.0 L, Absolute Lymphs (auto) 1.99, Nucleated RBC % 0, Differential Comment SCANNED, Reactive Lymphocytes 1+, Platelet Estimate SLT DEC, Poikilocytosis 1+, Anisocytosis 2+, Microcytosis 1+, Macrocytosis 1+, Ovalocytes 1+ 03/22/19 06:55: PT 18.9 H, INR 1.6, APTT 36.5 H 03/22/19 06:55: Sodium 138, Potassium 3.9, Chloride 107, Carbon Dioxide 19.0 L, Anion Gap 12, BUN 18, Creatinine 1.03, Estim Creat Clear Calc 66.00, Est GFR (MDRD) Af Amer 90, Est GFR (MDRD) Non-Af 75, BUN/Creatinine Ratio 17.5, Glucose 124 H, Calcium 7.6 L, Total Bilirubin 1.60 H, AST 20, ALT 33, Alkaline Phosphatase 122 H, Troponin I < 0.015, Total Protein 5.3 L, Albumin 2.4 L, Globulin 2.9, Albumin/Globulin Ratio 0.8 L 03/22/19 06:55: Lactic Acid 3.9 H 03/22/19 06:55: B-Natriuretic Peptide 107.6 H 03/22/19 07:08: Specimen Type ART, Sample Site L Radial, pH 7.49 H, Bicarbonate Actual 20.0 L, POC Total CO2 21, Base Excess -3 L, O2 Saturation 95, ABG pCO2 26.6 L, ABG pO2 66 L, Hugo Test POS, O2 Delivery Device Nasal Can, Liter Flow 4.0, Blood Gas Notified Whom ED MD, Blood Gas Notified Time 700 03/22/19 09:20: Lactic Acid 2.5 H Clinical Impression(s) from Imaging Studies Chest X-Ray 03/22/19 06:47 IMPRESSION: Interval development of airspace disease in the lower lobes. Electronically Signed: Shahriar Linares, at 7:09 EST Tel , Service support , Current Medications Acyclovir (Zovirax) 200 mg PO BID DWAYNE Albuterol/Ipratropium (Duoneb) 3 ml INHALATION Q4H.RT DWAYNE Allopurinol (Zyloprim) 300 mg PO DAILY DWAYNE Apixaban (Eliquis) 5 mg PO BID DWAYNE Atorvastatin Calcium (Lipitor) 40 mg PO QHS DWAYNE Calcitriol (Rocaltrol) 0.25 mcg PO DAILY DWAYNE Dextrose (D50w Syringe) 0 gm IV X1 PRN; Protocol PRN Reason: Hypoglycemia Diltiazem HCl (Cardizem Cd) 360 mg PO DAILY DWAYNE Ezetimibe (Zetia) 10 mg PO DAILY DWAYNE Glucagon () 1 mg IM .X1 PRN PRN Reason: Hypoglycemia Guaifenesin (Mucinex) 1,200 mg PO BID DWAYNE Vancomycin HCl 1,500 mg/ (Sodium Chloride) 530 mls @ 250 mls/hr IV X1 ONE Stop: 03/22/19 10:37 Last Admin: 03/22/19 09:32 Dose: 250 mls/hr Documented by: Ceftriaxone Sodium 2 gm/ (Sodium Chloride) 50 mls @ 100 mls/hr IV Q24 DWAYNE Stop: 03/29/19 10:01 Azithromycin 500 mg/ Dextrose 255 mls @ 250 mls/hr IV Q24 DWAYNE Stop: 03/27/19 10:01 Sodium Chloride () 1,000 mls @ 100 mls/hr IV .Q10H DWAYNE Sodium Chloride () 1,000 mls @ 999 mls/hr IV .Q1H1M ONE Stop: 03/22/19 10:22 Last Admin: 03/22/19 09:25 Dose: 999 mls/hr Documented by: Latanoprost (Xalatan Opthalmic) 1 drop EACH EYE QHS DWAYNE Levothyroxine Sodium (Synthroid) 150 mcg PO DAILY@0600 DWAYNE Loratadine (Claritin) 5 mg PO DAILY DWAYNE Non-Formulary Medication (Cometriq) 20 mg PO DAILY DWAYNE Non-Formulary Medication (Pomalidomide [Pomalyst]) 1 mg PO DAILY DWAYNE Ondansetron HCl (Zofran) 4 mg IV Q8H PRN PRN PRN Reason: NAUSEA/VOMITING Pantoprazole Sodium (Protonix) 40 mg PO DAILY DWAYNE Potassium Chloride (K-Dur) 20 meq PO DAILYCM DWAYNE Pregabalin (Lyrica) 50 mg PO BID DWAYNE Sodium Chloride () 10 - 40 ml IV UD PRN PRN Reason: SALINE FLUSH Assessment/Plan Active and Suspected Problems (Last Reviewed 03/18/19 @ 09:31 by Nhi Lee) Acute respiratory failure with hypoxia (Acute) CAP (community acquired pneumonia) (Acute) Atrial fibrillation with rapid ventricular response (Acute) Sepsis due to pneumonia (Acute) Severe sepsis (Acute) RECOMMENDATIONS: 1. Continue fluid boluses as tolerated 2. BiPAP at current settings, breaks only as tolerated 3. Agree with empiric antibiotics 4. Consider cardiology evaluation, possible amiodarone 5. Wean oxygen as tolerated 6. PICC line if pressor agents are required 7. Continue anticoagulation, discontinue Coreg given hypotension IMPRESSIONS: 1. Acute hypoxic respiratory failure secondary to left lower lobe pneumonia Patient with a history of a left upper lobectomy and now has a left lower lobe pneumonia. Patient is on antibiotics. Bronchodilators will likely exacerbate patient's A. fib with RVR, so we will try to avoid. Will initiate empiric steroid therapy and transition bronchodilators to as needed. 2. Severe sepsis secondary to left lower lobe pneumonia Patient appears to be responding to fluid boluses at this time. Cannot exclude the need for pressor therapy as patient is immunosuppressed with a decreased WBC count. Agree with the use of vancomycin given patient's immunosuppression secondary to multiple cancers and leukopenia. Obtain sputum if possible. Cannot exclude the need for a PICC line to facilitate pressor therapy. 3. A. fib with RVR/probable diastolic CHF/coronary artery disease Patient currently in A. fib with RVR. No echocardiogram is available for review. Patient may benefit from a cardiology consultation. Would defer to hospitalist. Patient may need to be initiated on amiodarone if hypotension persists. Alternative would be cardioversion. 4. Multiple cancers and history of thrombosis Patient did take his Eliquis this morning. Reasonable to continue with Eliquis for now. If patient does need a central line, PICC line would be appropriate as traditional central line would have significant bleeding complications. Alternative would be to transition to a heparin drip or therapeutic Lovenox, but defer to hospitalist. Okay to use Magic mouthwash to facilitate p.o. intake. 5. Diabetes mellitus Patient being placed on steroid therapy. Will need to watch blood sugars closely. Patient should have sliding scale insulin with every 6 blood sugar checks. 6. Advanced age/odynophagia/gout/GERD/obesity/hyperlipidemia/acquired hypothyroidism Complicates care, management, recovery and prognosis. Okay to use Magic mouthwash if necessary. Continue home Protonix. TIME: 60 minutes critical care time spent addressing patient's acute hypoxic respiratory failure, severe sepsis, A. fib with RVR, diabetes mellitus, review of all data and collaboration with care team (9 AM to 10:40 AM) Code Visit 9xxxx: [id number] Critical care first hour
[2019-03-22] MEDS: fentaNYL 100 MCG/2 ML Ampul 25 MCG IV ×2 (10:31→12:38)
[2019-03-22] MEDS: 0.9% Normal Saline 1,000 ML 100 ML IV (10:32)
[2019-03-22] MEDS: Pantoprazole Sodium 40 MG Tablet PO (10:34)
[2019-03-22] MEDS: APIXABAN 5 MG TABLET PO ×2 (10:34→20:39)
[2019-03-22 11:18] LABS: Reflex Lactate? Y
[2019-03-22 12:11] LABS: Bedside Glucose 88 mg/dL (70-110)
[2019-03-22 13:24] LABS: Reflex Lactate? Y
[2019-03-22 13:34] LABS: Mucous, Urine 0 SEEN /hpf (<or=2+)
[2019-03-22 13:41] LABS: Color, Urine Yellow (Yellow); Glucose, Dipstick Normal (Normal); Ketone-Dipstick 15 mg/dl (Negative); Leukocyte Esterase-Dipstick 25 /ul (Negative); Nitrite-Dipstick Negative (Negative); Occult Blood-Urine 10 /ul (Negative); Protein-Dipstick 30 mg/dl (Negative); Urine Clarity Cloudy (Clear); Urine Urobilinogen 1 mg/dl (Normal)
[2019-03-22 13:43] LABS: Urine Bilirubin Dipstick 1 mg/dL (Negative)
[2019-03-22 13:44] LABS: Bacteria 3+ /hpf (None Seen); Red Blood Cells-Urine 0-5 SEEN /hpf (0-5); Squamous Epithelial Cells - UA 0-5 SEEN /hpf (0-5); White Blood Cells 0-5 SEEN /hpf (0-5)
[2019-03-22] MEDS: fentaNYL 100 MCG/2 ML Ampul 50 MCG IV ×3 (14:36→18:26)
--- NOTE | 2019-03-22 15:30 | RAD_ITS ---
STUDY: X-RAY CHEST REASON FOR EXAM: Male, 73 years old. Shortness of breath TECHNIQUE: Frontal view COMPARISON: March 22, 2019 at 06:45 hours FINDINGS: The lungs are expanded. Left basilar infiltrate. Possible early right lung infiltrate. Normal size heart. Normal mediastinum and ramos. Normal visualized pulmonary arteries. Normal visualized aortic arch and descending thoracic aorta. Degenerative changes of the thoracic spine. Normal visualized ribs, clavicles, and shoulders. There is no demonstrated abnormality of the visualized soft tissue structures of the upper abdomen. RAD/Chest 1 View (Portable) IMPRESSION: Bilateral infiltrates. Electronically Signed: Jose Laureano DO at 17:14 EST Tel [phone], Service support ,
[2019-03-22] MEDS: Furosemide 40 MG/4 ML Vial IV (15:51)
--- NOTE | 2019-03-22 15:53 | EKG12_ITS ---
Test Reason : RHYTHM Blood Pressure : / mmHG Vent. Rate : 151 BPM Atrial Rate : 151 BPM P-R Int : 128 ms QRS Dur : 076 ms QT Int : 290 ms P-R-T Axes : 000 025 -12 degrees QTc Int : 459 [address] abnormality Abnormal ECG When compared with ECG of 22-MAR-2019 06:46, MANUAL COMPARISON REQUIRED, DATA IS UNCONFIRMED Confirmed by AJAY FORTE, YASMANY ([id number]), scientific editor LUIS DANIEL BRAVO ([id number]) on 03/29/2019 12:13:05 PM Referred By: Birdie Urban Confirmed By:MARIE MOSS MD
[2019-03-22 15:56] LABS: Allen Test POS; Base Excess -6 mmol/L (-2 to +2); Bicarbonate 18.7 mmol/L (22-26); Blood Gas Specimen Type ART; O2 Delivery Device Nasal Can; PO2 109 mmHG (75-100); SITE R Radial; SO2 98 % (95-99); Time Given 1548; Total Carbon Dioxide 20 mmol/L; pCO2 29.6 mmHg (35-45); pH 7.41 (7.35-7.45)
[2019-03-22] MEDS: Metoprolol Tartrate 5 MG/5 ML Vial 2.5 MG IV (18:06)
[2019-03-22 18:25] LABS: Bedside Glucose 114 mg/dL (70-110)
[2019-03-22] MEDS: oxyCODONE 5 MG Tablet PO (20:38)
[2019-03-22] MEDS: Acyclovir 200 MG Capsule PO (20:39)
[2019-03-22] MEDS: guaiFENesin 1,200 MG Tablet 1200 MG PO (20:39)
[2019-03-22] MEDS: Atorvastatin Calcium 40 MG Tablet PO (20:40)
--- NOTE | 2019-03-22 20:40 | NURSING ---
Pt was taken off the BiPAP this time, and given PO medications, pt tolerated being off the Bipap and taking his medications. At this time pt was left off of the BiPAP per his request and placed on 15L High flow NC and is tolerating well.
[2019-03-22] MEDS: Pregabalin 50 MG Capsule PO (20:42)
[2019-03-22] MEDS: Latanoprost 0.005% 1 Bottle 1 DRP EACH EYE (20:45)
[2019-03-22] MEDS: 0.9% Saline Lock 10 ML Syringe IV (20:47)
--- NOTE | 2019-03-22 21:29 | NURSING ---
Pt was checked on at this time by this RN, at this time he was tolerating the NC well and was turned down from 15L to 10L High Flow NC saturations were 100% and now remain 98% on the 10L.
--- NOTE | 2019-03-22 23:22 | CPS ---
Decreased high flow O2 nasal cannula to 8 lpm
[2019-03-22 23:26] LABS: Bedside Glucose 118 mg/dL (70-110)
[2019-03-23] VITALS (26 sets, daily range): BP systolic 93–130; BP diastolic 60–84; PULSE 84–126; RESP 11–23; TEMP 36.4–36.9; O2SAT 91–99
--- NOTE | 2019-03-23 01:20 | CPS ---
O2 decreased to 4 lpm
--- NOTE | 2019-03-23 02:42 | EKG12_ITS ---
Test Reason : EKG CHANGE Blood Pressure : / mmHG Vent. Rate : 097 BPM Atrial Rate : 097 BPM P-R Int : 168 ms QRS Dur : 094 ms QT Int : 376 ms P-R-T Axes : 027 013 015 degrees QTc Int : 477 ms Normal sinus rhythm Normal ECG When compared with ECG of 22-MAR-2019 15:53, MANUAL COMPARISON REQUIRED, DATA IS UNCONFIRMED Confirmed by AJAY FORTE, YASMANY ([id number]), map editor LUIS DANIEL BRAVO ([id number]) on 03/29/2019 12:12:58 PM Referred By: Birdie Urban Confirmed By:MARIE MOSS MD
--- NOTE | 2019-03-23 02:47 | NURSING ---
Pt went from A-fib to sinus rhythm EKG was obtained at this time to confirm. Pt is currently in Sinus Tachycardia.
[2019-03-23] MEDS: fentaNYL 100 MCG/2 ML Ampul 50 MCG IV ×2 (04:03→08:03)
[2019-03-23] MEDS: 0.9% Saline Lock 10 ML Syringe IV ×3 (04:04→22:55)
[2019-03-23 04:18] LABS: Hematocrit 37.7 % (40-54); Hemoglobin 12.5 g/dL (13.0-16.5); Mean Corp Hgb Conc 33.2 g/dL (32-36); Mean Corpuscular Volume 93.5 fL (80-94); Mean Platelet Vol. 10.8 fl (6.2-12.0); POSITIVE COUNT YES; POSITIVE DIFFERENTIAL YES; POSITIVE MORPHOLOGY YES; Platelet Count 64 K/mm3 (150-450); RBC Distribution Width CV 19.2 % (11.6-14.6); RBC Distribution Width SD 66.6 fl (35.1-43.9); Red Blood Count 4.03 M/mm3 (4.6-6.2); White Blood Count 1.5 K/mm3 (4.4-11.0)
[2019-03-23 04:29] LABS: Anion Gap 9 (5-15); BUN 19 mg/dL (7-18); Calcium,Total 6.7 mg/dL (8.5-10.1); Chloride 108 mmol/L (98-107); EST Glomerular Filtration Rate 116 mL/min (>60); Est Glom Filt Rate - Afr Amer 140 mL/min (>60); Estimated Creatinine Clearance 67.98 ml/min; Glucose 139 mg/dL (74-106); Potassium 3.9 mmol/L (3.5-5.1); Sodium Level 139 mmol/L (136-145)
[2019-03-23 04:51] LABS: Differential Indicated MANUAL DIFF
[2019-03-23 05:26] LABS: Lymphocyte 18 % (19-41); Monocyte 8 % (0-10); Neutrophil-Band 6 % (0-5); Neutrophil-Segmented 68 % (47-70); Red Cell Morphology NORM C+C NORMAL (NORM C&C); Total Cells Counted 50 (MANUAL DIFF); Toxic Granulation 2+
[2019-03-23 05:27] LABS: Absolute Lymphocyte Count 0.55 X10^3/uL (0.83-4.51); Absolute Neutrophil Count 2.2 X10^3/uL (2.0-7.7); Lymphocyte # 0.55 X10^3/ul (4.0); Neutrophil # 2.22 X10^3/uL (2.7-7.7)
[2019-03-23 05:28] LABS: Crenated RBC 2+
[2019-03-23 05:29] LABS: Ovalocyte 1+
[2019-03-23] MEDS: Metoprolol Tartrate 5 MG/5 ML Vial 2.5 MG IV (05:52)
[2019-03-23] MEDS: Levothyroxine 150 MCG Tablet PO (05:52)
[2019-03-23] MEDS: oxyCODONE 5 MG Tablet PO ×4 (05:52→23:21)
--- NOTE | 2019-03-23 05:55 | ECHOD_ITS ---
Version 2 Reason For Study: Dyspnea/SOB Procedure This was a 2D Doppler, Color Flow transthoracic echocardiogram. Myocardial strain analysis was performed in this exam to aid in the assessment of cardiac function. Exam performed portable in ICU/CCU. Left Ventricle Normal LV size. The estimated ejection fraction is 50 %. Stage 1 diastolic dysfunction. No regional wall motion abnormalities noted. Right Ventricle Normal RV size. Normal systolic function. Atria The left atrium is mildly enlarged. Normal right atrium. Mitral Valve Normal mitral valve. Tricuspid Valve Normal tricuspid valve. Mild (1+) tricuspid valve insufficiency. Pulmonary artery systolic pressure is 33 mmHg. Aortic Valve Trisinus/trileaflet aortic valve. Mild focal aortic valve calcification. Pulmonic Valve Normal pulmonic valve. Great Vessels Normal aortic root. The pulmonary artery is normal size. Normal inferior vena cava. Pericardium/Pleural No pericardial effusion. MMode/2D Measurements & Calculations LVIDd: 4.4 cm IVSd: 1.3 cm Ao root diam: 3.3 cm LVIDs: 3.3 cm LVPWd: 1.1 cm RVDd: 3.6 cm FS: 25.2 % LAV(MOD-bp): 57.6 ml LVAd ap4: 29.9 cm2 SV(MOD-sp4): 48.6 ml LAV(MOD-bp) Indexed: 26.2 ml/m2 EDV(MOD-sp4): 93.5 ml LAV(MOD-sp2): 56.0 ml EDV(sp4-el): 97.3 ml LAV(MOD-sp4): 55.1 ml LVAs ap4: 18.7 cm2 ESV(MOD-sp4): 44.9 ml ESV(sp4-el): 46.4 ml EF(MOD-sp4): 52.0 % EF(sp4-el): 52.4 % SV(sp4-el): 51.0 ml LA A4 area: 20.4 cm2 LA dimension(2D): 3.5 cm RA A4 area: 12.0 cm2 Doppler Measurements & Calculations MV E max randy: 61.1 cm/sec Lat Peak E' Randy: 5.4 cm/sec Med Peak E' Randy: 4.7 cm/sec MV A max randy: 86.1 cm/sec E/E' lat: 11.4 E/E' med: 13.0 MV E/A: 0.71 Ao V2 max: 142.9 cm/sec LV V1 max: 105.7 cm/sec PA V2 max: 142.4 cm/sec Ao max P.2 mmHg LV V1 max P.5 mmHg Ao V2 mean: 93.7 cm/sec Ao mean P.0 mmHg Ao V2 VTI: 23.8 cm TR max randy: 274.4 cm/sec TR max P.1 mmHg Interpretation Summary Normal LV size. The estimated ejection fraction is 50 %. The left atrium is mildly enlarged. Stage 1 diastolic dysfunction. Mild (1+) tricuspid valve insufficiency. Pulmonary artery systolic pressure is 33 mmHg. The global longitudinal strain is mildly abnormal. The global longitudinal strain = -16.2% (abnormal). Ordering Physician: Birdie Urban Referring Physician: Mohamud Guzman Performed By: Missy Garcia, RDCS, RVT
[2019-03-23 06:06] LABS: Bedside Glucose 126 mg/dL (70-110)
--- NOTE | 2019-03-23 06:38 | PCM.PN.HOSP ---
Patient Problems: Active and Suspected Problems (Last Reviewed 03/18/19 @ 09:31 by Nhi Lee) Acute respiratory failure with hypoxia (Acute) CAP (community acquired pneumonia) (Acute) Atrial fibrillation with rapid ventricular response (Acute) Sepsis due to pneumonia (Acute) Severe sepsis (Acute) Subjective: Patient overnight with episode of urinary retention, notable hydration following presentation for septic shock with aggressive hydration, IV Lasix x1 administered given concern for overload and possible diastolic CHF concurrently, Rae catheter placed. Patient notes he is breathing better, no market coughing, does admit to some mild left hip discomfort as he has been in bed and not moving. Patient denies fevers, chills, nausea, emesis, abdominal pain, chest pain or worsening dyspnea. Objective: Physical Examination: General: awake, alert, oriented x 3 and cooperative, seated upright in the bed, fatigued appearance, no current acute distress demonstrated. Skin: normal color, turgor, no icterus, cyanosis. HEENT: AT/NC, EOMI, PERRLA, mildly dry MM, no carotid bruits or JVD noted; however thickened neck makes examination difficult with recent concern for acute diastolic CHF exacerbation. Lungs: Diminished breath sounds, greater bases, improved effort, currently no rales, minimal rhonchi primarily bases, currently no noted wheezing but was noted prior. Heart: Regular rate and rhythm; no gallop, rub audible. Abdomen: soft, pes, NTTP, ND, normal BS, no HSM. Extremities: no cyanosis, clubbing, minimal bilateral lower extremity ankle edema. Neurological: patient awake, alert, oriented x 3; cognitive function intact; pupils equally reactive to light and accomodation; cranial nerves II-XII grossly normal, moving all 4 extremities, no focal deficits, strength severely global decrease secondary to acute presentation. Psychiatric: affect appears fatigued, mildly flat, no acute evidence of depressive or anxiety feelings. Vitals/I&O's: Vital Signs Temp Pulse Resp BP Pulse Ox 97.6 F L 88 23 H 120/82 H 95 03/23/19 06:00 03/23/19 06:00 03/23/19 06:00 03/23/19 06:00 03/23/19 06:00 Oxygen Flow Rate (L/min) 4 Oxygen Delivery Method Nasal Cannula Weight: 221 lb 9.033 oz Body Mass Index (BMI) 30.7 Intake and Output for Last 24 Hours 03/21/19 03/22/19 03/23/19 23:59 23:59 23:59 Intake Total 5806.66 / 5806.66 300 / 300 Output Total 1525 / 1525 350 / 350 Balance 4281.66 / 4281.66 -50 / -50 Microbiology Past 72 Hours 03/22/19 13:25 Urine, Clean Catch Streptococcus pneumoniae Antigen (M - Final 03/22/19 13:25 Urine, Clean Catch Legionella Antigen - Final 03/22/19 07:45 Interface Orders Respiratory Panel (PCR) - Final Parainfluenza 4 03/22/19 07:45 Mucosa - Nasopharyngeal Influenza Types A,B Direct FA (MELITON) - Final Laboratory Results 03/22/19 06:55: WBC 3.4 L, RBC 4.68, Hgb 14.8, Hct 43.3, MCV 92.5, MCH 31.6, MCHC 34.2, RDW Std Deviation 65.6 H, RDW Coeff of Mary Ellen 19.4 H, Plt Count 108 L, MPV 10.1, Immature Gran % (Auto) 0.900, Neut % (Auto) 28.0 L, Lymph % (Auto) 58.4 H, [place] % (Auto) 10.3 H, Eos % (Auto) 2.1, Baso % (Auto) 0.3, Absolute Neuts (auto) 1.0 L, Absolute Lymphs (auto) 1.99, Nucleated RBC % 0, Differential Comment SCANNED, Reactive Lymphocytes 1+, Platelet Estimate SLT DEC, Poikilocytosis 1+, Anisocytosis 2+, Microcytosis 1+, Macrocytosis 1+, Ovalocytes 1+ 03/22/19 06:55: PT 18.9 H, INR 1.6, APTT 36.5 H 03/22/19 06:55: Sodium 138, Potassium 3.9, Chloride 107, Carbon Dioxide 19.0 L, Anion Gap 12, BUN 18, Creatinine 1.03, Estim Creat Clear Calc 66.00, Est GFR (MDRD) Af Amer 90, Est GFR (MDRD) Non-Af 75, BUN/Creatinine Ratio 17.5, Glucose 124 H, Calcium 7.6 L, Total Bilirubin 1.60 H, AST 20, ALT 33, Alkaline Phosphatase 122 H, Troponin I < 0.015, Total Protein 5.3 L, Albumin 2.4 L, Globulin 2.9, Albumin/Globulin Ratio 0.8 L 03/22/19 06:55: Lactic Acid 3.9 H 03/22/19 06:55: B-Natriuretic Peptide 107.6 H 03/22/19 07:08: Specimen Type ART, Sample Site L Radial, pH 7.49 H, Bicarbonate Actual 20.0 L, POC Total CO2 21, Base Excess -3 L, O2 Saturation 95, ABG pCO2 26.6 L, ABG pO2 66 L, Hugo Test POS, O2 Delivery Device Nasal Can, Liter Flow 4.0, Blood Gas Notified Whom ED , Blood Gas Notified Time 700 03/22/19 09:20: Lactic Acid 2.5 H 03/22/19 12:01: POC Glucose 88 03/22/19 13:25: Urine Color Yellow, Urine Clarity Cloudy, Urine pH 5.0, Ur Specific [place] 1.020, Urine Protein 30 H, Urine Glucose (UA) Normal, Urine Ketones 15 H, Urine Occult Blood 10 H, Urine Nitrite Negative, Urine Bilirubin 1 H, Urine Urobilinogen 1 H, Ur Leukocyte Esterase 25 H, Urine RBC 0-5 SEEN, Urine WBC 0-5 SEEN, Ur Squamous Epith Cells 0-5 SEEN, Urine Bacteria 3+, Urine Mucus 0 SEEN 03/22/19 15:51: Specimen Type ART, Sample Site R Radial, pH 7.41, Bicarbonate Actual 18.7 L, POC Total CO2 20, Base Excess -6 L, O2 Saturation 98, ABG pCO2 29.6 L, ABG pO2 109 H, Hugo Test POS, O2 Delivery Device Nasal Can, Liter Flow 15.0, Blood Gas Notified Whom [facility] , Blood Gas Notified Time 4028 03/22/19 18:10: POC Glucose 114 H 03/22/19 23:23: POC Glucose 118 H 03/23/19 04:00: WBC 1.5 L, RBC 4.03 L, Hgb 12.5 L, Hct 37.7 L, MCV 93.5, MCH 31.0, MCHC 33.2, RDW Std Deviation 66.6 H, RDW Coeff of Mary Ellen 19.2 H, Plt Count 64 L, MPV 10.8, Neut % (Auto) Not Reportable, Absolute Neuts (auto) 2.2, Absolute Lymphs (auto) 0.55 L, Total Counted 50, Neutrophils % (Manual) 68, Band Neutrophils % 6 H, Lymphocytes % (Manual) 18 L, Monocytes % (Manual) 8, Diff Path Review May foll, Toxic Granulation 2+, Platelet Estimate MOD, RBC Morphology NORM C+C, Ovalocytes 1+, Crenated Cell 2+ 03/23/19 04:00: Sodium 139, Potassium 3.9, Chloride 108 H, Carbon Dioxide 22.0, Anion Gap 9, BUN 19 H, Creatinine 0.70, Estim Creat Clear Calc 67.98, Est GFR (MDRD) Af Amer 140, Est GFR (MDRD) Non-Af 116, BUN/Creatinine Ratio 27.0 H, Glucose 139 H, Calcium 6.7 L 03/23/19 05:50: POC Glucose 126 H Current Medications Acyclovir (Zovirax) 200 mg PO BID [facility] Last Admin: 03/22/19 20:39 Dose: 200 mg Documented by: Albuterol/Ipratropium (Duoneb) 3 ml INHALATION Q4H.RT PRN PRN Reason: WHEEZING Allopurinol (Zyloprim) 300 mg PO DAILY [facility] Last Admin: 03/22/19 10:09 Dose: Not Given Documented by: Apixaban (Eliquis) 5 mg PO BID [facility] Last Admin: 03/22/19 20:39 Dose: 5 mg Documented by: Atorvastatin Calcium (Lipitor) 40 mg PO QHS [facility] Last Admin: 03/22/19 20:40 Dose: 40 mg Documented by: Calcitriol (Rocaltrol) 0.25 mcg PO DAILY [facility] Last Admin: 03/22/19 10:08 Dose: Not Given Documented by: Dextrose (D50w Syringe) 0 gm IV X1 PRN; Protocol PRN Reason: Hypoglycemia Ezetimibe (Zetia) 10 mg PO DAILY [facility] Last Admin: 03/22/19 10:09 Dose: Not Given Documented by: Fentanyl Citrate (Sublimaze (100mcg Ampule)) 50 mcg IV Q2H PRN PRN PRN Reason: Pain Score 1-10/10 Last Admin: 03/23/19 04:03 Dose: 50 mcg Documented by: Glucagon () 1 mg IM .X1 PRN PRN Reason: Hypoglycemia Guaifenesin (Mucinex) 1,200 mg PO BID [facility] Last Admin: 03/22/19 20:39 Dose: 1,200 mg Documented by: Ceftriaxone Sodium 2 gm/ (Sodium Chloride) 50 mls @ 100 mls/hr IV Q24 [facility] Stop: 03/29/19 10:01 Last Infusion: 03/22/19 11:53 Dose: Infused Documented by: Azithromycin 500 mg/ Dextrose 255 mls @ 250 mls/hr IV Q24 [facility] Stop: 03/27/19 10:01 Last Infusion: 03/22/19 13:02 Dose: Infused Documented by: Latanoprost (Xalatan Opthalmic) 1 drop EACH EYE QHS [facility] Last Admin: 03/22/19 20:45 Dose: 1 drop Documented by: Levothyroxine Sodium (Synthroid) 150 mcg PO DAILY@0600 [facility] Last Admin: 03/23/19 05:52 Dose: 150 mcg Documented by: Loratadine (Claritin) 5 mg PO DAILY [facility] Last Admin: 03/22/19 10:08 Dose: Not Given Documented by: Methylprednisolone (Solu-Medrol) 40 mg IV Q8 [facility] Last Admin: 03/23/19 05:52 Dose: 40 mg Documented by: Metoprolol Tartrate (Lopressor (Beta [place])) 2.5 mg IV Q6 [facility] Last Admin: 03/23/19 05:52 Dose: 2.5 mg Documented by: Non-Formulary Medication (Cometriq) 20 mg PO DAILY [facility] Last Admin: 03/22/19 18:18 Dose: Not Given Documented by: Non-Formulary Medication (Pomalidomide [Pomalyst]) 1 mg PO DAILY [facility] Ondansetron HCl (Zofran) 4 mg IV Q8H PRN PRN PRN Reason: NAUSEA/VOMITING Last Admin: 03/22/19 12:43 Dose: 4 mg Documented by: Oxycodone HCl (Oxyir) 5 mg PO Q6 [facility] Last Admin: 03/23/19 05:52 Dose: 5 mg Documented by: Pantoprazole Sodium (Protonix) 40 mg PO DAILY [facility] Last Admin: 03/22/19 10:34 Dose: 40 mg Documented by: Potassium [facility]loride (K-Dur) [facility] Pregabalin (Lyrica) 50 mg PO BID [facility] Last Admin: 03/22/19 20:42 Dose: 50 mg Documented by: Sodium Chloride () 10 - 40 ml IV UD PRN PRN Reason: SALINE FLUSH Last Admin: 03/23/19 04:04 Dose: 40 ml Documented by: STROKE Vital Signs/Narrative: Vital Signs Temp Pulse Resp BP BP Pulse Ox 03/23/19 06:00 97.6 F L 88 23 H 120/82 H 95 03/23/19 05:52 93 117/73 03/23/19 05:00 97.6 F L 96 14 104/73 97 03/23/19 04:00 97.9 F 95 15 114/77 96 03/23/19 03:08 99 03/23/19 03:00 97.9 F 95 17 101/71 96 Medical Necessity - Tobacco Use Smoking Status: Former smoker Tobacco Use: Cigarettes Assessment/Plan All Active Problems (Last Reviewed 03/18/19 @ 09:31 by Nhi Lee) Acute respiratory failure with hypoxia (Acute) CAP (community acquired pneumonia) (Acute) Atrial fibrillation with rapid ventricular response (Acute) Sepsis due to pneumonia (Acute) Severe sepsis (Acute) Junctional rhythm (Acute 01/10/19) History of non-ST elevation myocardial infarction (NSTEMI) (Resolved 2004) The patient is a 71 y/o M w/ PMHx: PAF, CAD, HTN, HLD, Hx Thyroid CA, 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 1. Acute Septic Shock secondary to Acute Hypoxic Respiratory Failure secondary to LLL CAP and Acute Parainfluenza 4: Admitted to the ICU, maintained on cardiac monitoring, continued IVF bolus per protocol with LA trending w/ initial 3.9-->repeat 2.5, continued initially on IV rocephin and azithromycin, maintained on IV solumedrol, Legionella and streptococcal antigens negative, blood culture pending per ED, respiratory viral panel with positive parainfluenza, sputum culture requested, BIPAP initially, transitioning off. Given clinical improvement will evaluate for transition to PCU. 2. Paroxsymal atrial fibrillation w/ RVR: EKG in ED w/ atrial fibrillation w/ RVR. Held off on Cardizem and metoprolol initially secondly to hypotension secondary to #1, maintained on telemetry, cardiac enzyme serial set < 0.015 x 3, BNP 107.6, obtain magnesium level, obtain ECHO, and free T4 normal, continued on eliquis. 3. Acute on Chronic Diastolic CHF: Mildly elevated BNP, concern for overload noted per ICU physician, could have been result of prolonged atrial fibrillation with RVR, cardiac enzymes normal x 3, EKG as noted w/ atrial fibrillation with RVR, ECHO pending, improved BP, maintained on eliquis, metoprolol added back, not on ACEI/ARB nor statin. Lasix 40 mg IV x 1 administered per ICU. Urinary retention noted concurrently with notable IV fluid ministration given #1 but concurrent concern for #3, Rae catheter placed, will administer twice daily Flomax and reattempt discontinuation of Rae potentially tomorrow a.m. 4. Diabetes mellitus type II: Not on regimen, maintained following admit on ACHS ISS, accu checks, obtained hemoglobin A1c, 7.4%, with nutrition consultation for education and teaching. 5. CAD: Maintained on eliquis, restart metoprolol, monitor BP prior to additional agents, not on KRISTEN/ARB nor statin 6. Multiple Myeloma: Ongoing current treatment, on daratumumab, following w/ Oncology outpatient, continued on prophylactic acyclovir, mag and phos requested. 7. Pancytopenia, Chronic: Secondary to Multiple Myeloma, ongoing treatment as noted, admission CBC w/ WBC 3.4, Hgb 14.8, Plts 108-->03/23/19 CBC w/ WBC 1.5, Hgb 12.5, Plt 64. 8. Hx Thyroid CA: s/p thyroidectomy. 9. Hx Large cell neuroendocrine CA: s/p 04/06 wedge resection JOSE w/ 06/2016 JOSE lobectomy and LNDx. 10. Hypertension: BP improving, ICU admission of IV metoprolol especially given #2, add back metoprolol. 11. Hyperlipidemia: Maintained on Zetia. 12. Hypothyroidism: Continue home synthroid regimen, TSH and FT4 normal. 13. GERD: Continued on PPI. 14. Hx DVT: Maintained on eliquis. 15. DVT Prophylaxis: SCDs, eliquis. 16. CODE STATUS: Full code. Code Visit Inpatient E&M: 10762 Subs Hosp L3
--- NOTE | 2019-03-23 06:43 | PN_ITS ---
Subjective: Patient did well overnight. No acute interventions were required. Patient currently on nasal cannula oxygen and maintaining saturations. Patient did have significant pain issues requiring initiation of OxyIR, but states this has worked well for his bone pain. General: Alert, Oriented x3, Cooperative, No apparent distress, Well developed, Well nourished, - - No conversational dyspnea. HEENT: Atraumatic, PERRLA, EOMI, Normocephalic, - - No scleral icterus or injection noted Oral: Moist Mucosa, No Gingival or Mucosal Lesions/ Ulcerations Neck: Supple, No JVD, No Nodes, Trachea Midline Lungs: No rales, Diminished, Rhonchi - Left base, Wheezes - End exhalation, - - Symmetric expansion Cardiovascular: Regular rate, Regular Rhythm, Normal S1, Normal S2, No murmurs, No rub noted, No Gallop Abdomen: Bowel Sounds Present, Soft, Non Tender, Non-Distended Extremities: No cyanosis, No edema, Capillary Refill Less than 3 Seconds, Clubbing Skin: No rashes, No breakdown Musculoskeletal: No Tenderness to Palpation of Joints or Extremities Lymphatic: No Cervical, Supraclavicular, or Inguinal Adenopathy Neurological: Cranial nerves II-XII grossly intact, Neuro grossly intact, Motor Exam 5/5 strength throughout Psych/Mental Status: Alert and oriented to time, place, person, mood and affect Vital Signs Temp Pulse Resp BP Pulse Ox 36.4 C L 88 23 H 120/82 H 95 03/23/19 06:00 03/23/19 06:00 03/23/19 06:00 03/23/19 06:00 03/23/19 06:00 Oxygen Flow Rate (L/min) 4 Oxygen Delivery Method Nasal Cannula Weight: 100.5 kg Body Mass Index (BMI) 30.7 Intake and Output for Last 24 Hours 03/21/19 03/22/19 03/23/19 23:59 23:59 23:59 Intake Total 5806.66 / 5806.66 300 / 300 Output Total 1525 / 1525 350 / 350 Balance 4281.66 / 4281.66 -50 / -50 Labs (Last 48 Hours) 03/22/19 03/22/19 03/22/19 06:55 06:55 06:55 WBC 3.4 L RBC 4.68 Hgb 14.8 Hct 43.3 MCV 92.5 MCH 31.6 MCHC 34.2 RDW Std Deviation 65.6 H RDW Coeff of Mary Ellen 19.4 H Plt Count 108 L MPV 10.1 Immature Gran % (Auto) 0.900 Neut % (Auto) 28.0 L Lymph % (Auto) 58.4 H [place] % (Auto) 10.3 H Eos % (Auto) 2.1 Baso % (Auto) 0.3 Absolute Neuts (auto) 1.0 L Absolute Lymphs (auto) 1.99 Total Counted Neutrophils % (Manual) Band Neutrophils % Lymphocytes % (Manual) Monocytes % (Manual) Nucleated RBC % 0 Differential Comment SCANNED Diff Path Review Reactive Lymphocytes 1+ Toxic Granulation Platelet Estimate SLT DEC RBC Morphology Poikilocytosis 1+ Anisocytosis 2+ Microcytosis 1+ Macrocytosis 1+ Ovalocytes 1+ Crenated Cell PT 18.9 H INR 1.6 APTT 36.5 H Specimen Type Sample Site pH Bicarbonate Actual POC Total CO2 Base Excess O2 Saturation ABG pCO2 ABG pO2 Hugo Test O2 Delivery Device Liter Flow Blood Gas Notified Whom Blood Gas Notified Time Sodium 138 Potassium 3.9 Chloride 107 Carbon Dioxide 19.0 L Anion Gap 12 BUN 18 Creatinine 1.03 Estim Creat Clear Calc 66.00 Est GFR (MDRD) Af Amer 90 Est GFR (MDRD) Non-Af 75 BUN/Creatinine Ratio 17.5 Glucose 124 H Lactic Acid Calcium 7.6 L Total Bilirubin 1.60 H AST 20 ALT 33 Alkaline Phosphatase 122 H Troponin I < 0.015 B-Natriuretic Peptide Total Protein 5.3 L Albumin 2.4 L Globulin 2.9 Albumin/Globulin Ratio 0.8 L Urine Color Urine Clarity Urine pH Ur Specific [place] Urine Protein Urine Glucose (UA) Urine Ketones Urine Occult Blood Urine Nitrite Urine Bilirubin Urine Urobilinogen Ur Leukocyte Esterase Urine RBC Urine WBC Ur Squamous Epith Cells Urine Bacteria Urine Mucus POC Glucose 03/22/19 03/22/19 03/22/19 06:55 06:55 07:08 WBC RBC Hgb Hct MCV MCH MCHC RDW Std Deviation RDW Coeff of Mary Ellen Plt Count MPV Immature Gran % (Auto) Neut % (Auto) Lymph % (Auto) [place] % (Auto) Eos % (Auto) Baso % (Auto) Absolute Neuts (auto) Absolute Lymphs (auto) Total Counted Neutrophils % (Manual) Band Neutrophils % Lymphocytes % (Manual) Monocytes % (Manual) Nucleated RBC % Differential Comment Diff Path Review Reactive Lymphocytes Toxic Granulation Platelet Estimate RBC Morphology Poikilocytosis Anisocytosis Microcytosis Macrocytosis Ovalocytes Crenated Cell PT INR APTT Specimen Type ART Sample Site L Radial pH 7.49 H Bicarbonate Actual 20.0 L POC Total CO2 21 Base Excess -3 L O2 Saturation 95 ABG pCO2 26.6 L ABG pO2 66 L Hugo Test POS O2 Delivery Device Nasal Can Liter Flow 4.0 Blood Gas Notified Whom ED MD Blood Gas Notified Time 700 Sodium Potassium Chloride Carbon Dioxide Anion Gap BUN Creatinine Estim Creat Clear Calc Est GFR (MDRD) Af Amer Est GFR (MDRD) Non-Af BUN/Creatinine Ratio Glucose Lactic Acid 3.9 H Calcium Total Bilirubin AST ALT Alkaline Phosphatase Troponin I B-Natriuretic Peptide 107.6 H Total Protein Albumin Globulin Albumin/Globulin Ratio Urine Color Urine Clarity Urine pH Ur Specific [place] Urine Protein Urine Glucose (UA) Urine Ketones Urine Occult Blood Urine Nitrite Urine Bilirubin Urine Urobilinogen Ur Leukocyte Esterase Urine RBC Urine WBC Ur Squamous Epith Cells Urine Bacteria Urine Mucus POC Glucose 03/22/19 03/22/19 03/22/19 09:20 12:01 13:25 WBC RBC Hgb Hct MCV MCH MCHC RDW Std Deviation RDW Coeff of Mary Ellen Plt Count MPV Immature Gran % (Auto) Neut % (Auto) Lymph % (Auto) [place] % (Auto) Eos % (Auto) Baso % (Auto) Absolute Neuts (auto) Absolute Lymphs (auto) Total Counted Neutrophils % (Manual) Band Neutrophils % Lymphocytes % (Manual) Monocytes % (Manual) Nucleated RBC % Differential Comment Diff Path Review Reactive Lymphocytes Toxic Granulation Platelet Estimate RBC Morphology Poikilocytosis Anisocytosis Microcytosis Macrocytosis Ovalocytes Crenated Cell PT INR APTT Specimen Type Sample Site pH Bicarbonate Actual POC Total CO2 Base Excess O2 Saturation ABG pCO2 ABG pO2 Hugo Test O2 Delivery Device Liter Flow Blood Gas Notified Whom Blood Gas Notified Time Sodium Potassium Chloride Carbon Dioxide Anion Gap BUN Creatinine Estim Creat Clear Calc Est GFR (MDRD) Af Amer Est GFR (MDRD) Non-Af BUN/Creatinine Ratio Glucose Lactic Acid 2.5 H Calcium Total Bilirubin AST ALT Alkaline Phosphatase Troponin I B-Natriuretic Peptide Total Protein Albumin Globulin Albumin/Globulin Ratio Urine Color Yellow Urine Clarity Cloudy Urine pH 5.0 Ur Specific [place] 1.020 Urine Protein 30 H Urine Glucose (UA) Normal Urine Ketones 15 H Urine Occult Blood 10 H Urine Nitrite Negative Urine Bilirubin 1 H Urine Urobilinogen 1 H Ur Leukocyte Esterase 25 H Urine RBC 0-5 SEEN Urine WBC 0-5 SEEN Ur Squamous Epith Cells 0-5 SEEN Urine Bacteria 3+ Urine Mucus 0 SEEN POC Glucose 88 03/22/19 03/22/19 03/22/19 15:51 18:10 23:23 WBC RBC Hgb Hct MCV MCH MCHC RDW Std Deviation RDW Coeff of Mary Ellen Plt Count MPV Immature Gran % (Auto) Neut % (Auto) Lymph % (Auto) [place] % (Auto) Eos % (Auto) Baso % (Auto) Absolute Neuts (auto) Absolute Lymphs (auto) Total Counted Neutrophils % (Manual) Band Neutrophils % Lymphocytes % (Manual) Monocytes % (Manual) Nucleated RBC % Differential Comment Diff Path Review Reactive Lymphocytes Toxic Granulation Platelet Estimate RBC Morphology Poikilocytosis Anisocytosis Microcytosis Macrocytosis Ovalocytes Crenated Cell PT INR APTT Specimen Type ART Sample Site R Radial pH 7.41 Bicarbonate Actual 18.7 L POC Total CO2 20 Base Excess -6 L O2 Saturation 98 ABG pCO2 29.6 L ABG pO2 109 H Hugo Test POS O2 Delivery Device Nasal Can Liter Flow 15.0 Blood Gas Notified Whom HOSP Blood Gas Notified Time 1548 Sodium Potassium Chloride Carbon Dioxide Anion Gap BUN Creatinine Estim Creat Clear Calc Est GFR (MDRD) Af Amer Est GFR (MDRD) Non-Af BUN/Creatinine Ratio Glucose Lactic Acid Calcium Total Bilirubin AST ALT Alkaline Phosphatase Troponin I B-Natriuretic Peptide Total Protein Albumin Globulin Albumin/Globulin Ratio Urine Color Urine Clarity Urine pH Ur Specific [place] Urine Protein Urine Glucose (UA) Urine Ketones Urine Occult Blood Urine Nitrite Urine Bilirubin Urine Urobilinogen Ur Leukocyte Esterase Urine RBC Urine WBC Ur Squamous Epith Cells Urine Bacteria Urine Mucus POC Glucose 114 H 118 H 03/23/19 03/23/19 03/23/19 04:00 04:00 05:50 WBC 1.5 L RBC 4.03 L Hgb 12.5 L Hct 37.7 L MCV 93.5 MCH 31.0 MCHC 33.2 RDW Std Deviation 66.6 H RDW Coeff of Mary Ellen 19.2 H Plt Count 64 L MPV 10.8 Immature Gran % (Auto) Neut % (Auto) Not Reportable Lymph % (Auto) [place] % (Auto) Eos % (Auto) Baso % (Auto) Absolute Neuts (auto) 2.2 Absolute Lymphs (auto) 0.55 L Total Counted 50 Neutrophils % (Manual) 68 Band Neutrophils % 6 H Lymphocytes % (Manual) 18 L Monocytes % (Manual) 8 Nucleated RBC % Differential Comment Diff Path Review May foll Reactive Lymphocytes Toxic Granulation 2+ Platelet Estimate MOD RBC Morphology NORM C+C Poikilocytosis Anisocytosis Microcytosis Macrocytosis Ovalocytes 1+ Crenated Cell 2+ PT INR APTT Specimen Type Sample Site pH Bicarbonate Actual POC Total CO2 Base Excess O2 Saturation ABG pCO2 ABG pO2 Hugo Test O2 Delivery Device Liter Flow Blood Gas Notified Whom Blood Gas Notified Time Sodium 139 Potassium 3.9 Chloride 108 H Carbon Dioxide 22.0 Anion Gap 9 BUN 19 H Creatinine 0.70 Estim Creat Clear Calc 67.98 Est GFR (MDRD) Af Amer 140 Est GFR (MDRD) Non-Af 116 BUN/Creatinine Ratio 27.0 H Glucose 139 H Lactic Acid Calcium 6.7 L Total Bilirubin AST ALT Alkaline Phosphatase Troponin I B-Natriuretic Peptide Total Protein Albumin Globulin Albumin/Globulin Ratio Urine Color Urine Clarity Urine pH Ur Specific [place] Urine Protein Urine Glucose (UA) Urine Ketones Urine Occult Blood Urine Nitrite Urine Bilirubin Urine Urobilinogen Ur Leukocyte Esterase Urine RBC Urine WBC Ur Squamous Epith Cells Urine Bacteria Urine Mucus POC Glucose 126 H Microbiology 03/22/19 13:25 Urine, Clean Catch Streptococcus pneumoniae Antigen (M - F inal 03/22/19 13:25 Urine, Clean Catch Legionella Antigen - Final 03/22/19 07:45 Interface Orders Respiratory Panel (PCR) - Final Parainfluenza 4 03/22/19 07:45 Mucosa - Nasopharyngeal Influenza Types A,B Direct FA (MELITON) - Final Clinical Impression(s) from Imaging Studies Chest X-Ray 03/22/19 06:47 IMPRESSION: Interval development of airspace disease in the lower lobes. Electronically Signed: Shahriar Linares, at 7:09 EST Tel , Service support , Chest X-Ray 03/22/19 15:30 IMPRESSION: Bilateral infiltrates. Electronically Signed: Jose Laureano DO at 17:14 EST Tel [phone], Service support , Medical Necessity - Tobacco Use Smoking Status: Former smoker Tobacco Use: Cigarettes Assessment/Plan All Active Problems (Last Reviewed 03/18/19 @ 09:31 by Nhi Lee) Acute respiratory failure with hypoxia (Acute) CAP (community acquired pneumonia) (Acute) Atrial fibrillation with rapid ventricular response (Acute) Sepsis due to pneumonia (Acute) Severe sepsis (Acute) Junctional rhythm (Acute 01/10/19) History of non-ST elevation myocardial infarction (NSTEMI) (Resolved 2004) RECOMMENDATIONS: 1. Wean oxygen as tolerated 2. BiPAP rescue as necessary 3. Agree with empiric antibiotics for another 24 hours until culture negative 4. Consider cardiology evaluation, possible amiodarone 5. Wean oxygen as tolerated 6. Okay to transition Lopressor to p.o. 7. Possibly transfer from the intensive care unit later today IMPRESSIONS: 1. Acute hypoxic respiratory failure secondary to left lower lobe pneumonia secondary to parainfluenza virus and pneumococcus Patient with a history of a left upper lobectomy and now has a left lower lobe pneumonia. Patient is on antibiotics. Bronchodilators will likely exacerbate patient's A. fib with RVR, so we will try to avoid. Patient would likely benefit from a 5-day course of steroid therapy. If cultures negative at 48 hours, narrowing of antibiotic spectrum would be appropriate. 2. Severe sepsis secondary to left lower lobe pneumonia Blood pressure is much improved at this time. Agree with the use of vancomycin for now given patient's immunosuppression secondary to multiple cancers and leukopenia. This can likely be discontinued if culture negative at 48 hours. Cannot exclude the need for a PICC line to facilitate pressor therapy. 3. A. fib with RVR/probable diastolic CHF/coronary artery disease Patient currently in A. fib with RVR. Echocardiogram is currently pending. Patient may benefit from a cardiology consultation. Would defer to hospitalist. 4. Multiple cancers and history of thrombosis Patient did take his Eliquis this morning. Reasonable to continue with Eliquis for now. If patient does need a central line, PICC line would be appropriate as traditional central line would have significant bleeding complications. Alternative would be to transition to a heparin drip or therap eutic Lovenox, but defer to hospitalist. Okay to use Magic mouthwash to facilitate p.o. intake. 5. Diabetes mellitus Patient being placed on steroid therapy. Will need to watch blood sugars closely. Patient should have sliding scale insulin with every 6 blood sugar checks. 6. Advanced age/odynophagia/gout/GERD/obesity/hyperlipidemia/acquired hypot hyroidism Complicates care, management, recovery and prognosis. Okay to use Magic mouthwash if necessary. Continue home Protonix. Code Visit Inpatient E&M: 56580 Subs Hosp L3
[2019-03-23 07:19] LABS: Magnesium 1.6 mg/dL (1.6-2.6); Phosphorus 2.4 mg/dL (2.5-4.9); T4 Free Direct 1.31 ng/dL (0.76-1.46)
[2019-03-23 07:57] LABS: Hemoglobin A1c 7.4 % (4.2-6.3)
[2019-03-23] MEDS: APIXABAN 5 MG TABLET PO ×2 (09:08→22:47)
[2019-03-23] MEDS: Metoprolol Tartrate 25 MG Tablet PO ×2 (09:09→22:49)
[2019-03-23] MEDS: guaiFENesin 1,200 MG Tablet 1200 MG PO ×2 (09:09→22:49)
[2019-03-23] MEDS: Ezetimibe 10 MG Tablet PO (09:09)
[2019-03-23] MEDS: Calcitriol 0.25 MCG Capsule PO (09:09)
[2019-03-23] MEDS: Pregabalin 50 MG Capsule PO ×2 (09:09→22:46)
[2019-03-23] MEDS: Pantoprazole Sodium 40 MG Tablet PO (09:09)
[2019-03-23] MEDS: Loratadine 10 MG Tablet 5 MG PO (09:09)
[2019-03-23] MEDS: Acyclovir 200 MG Capsule PO ×2 (09:12→22:50)
[2019-03-23] MEDS: Allopurinol 300 MG Tablet PO (09:12)
--- NOTE | 2019-03-23 09:45 | CASEMGMT ---
RN CM Assessment Presentation: Pneumonia with Resp failure Intro role of CM and purpose of RN CM assessment to patient in room. Pt is awake, alert and able to participate in assessment. Demographics, PCP and Pharmacy verified. Pt lives alone in the independent homes @ [facility]. Pt states his is in [facility] since 3 weeks ago dying of liver cancer. Pt states he would drive to see her, but was unable this past week. Moved to [place] from [facility] early November to be closer to their children. He plans to return to his home on [place]. PCP: Specialists: Manager Provider Relations is in [place]. Is agreeable to see dishwashing machine repairer in [place] if recommended. Preferred Pharmacy: [facility] Insurance: [facility] Prescription Benefit: yes LNOK: (in SNF), son Mauricio Enriquez and daughter Khushi Gunderson Living Arrangements: Lives in one story home @ [facility] independent living. States he does not require any assistance at this time, and states is independent with ADL. Transportation: Drives DME: shower chair only. No home oxygen use HHC/SNF: denies Patient DC goals: return to independent living DC PLAN: home on dc. PT/OT evaluations are pending. Raimundo GUZMAN RN ACM
[2019-03-23] MEDS: Tamsulosin HCl 0.4 MG Capsule PO ×2 (10:14→16:58)
[2019-03-23] MEDS: Sucralfate 1 GM Tablet PO ×3 (11:25→22:48)
[2019-03-23 11:36] LABS: Bedside Glucose 209 mg/dL (70-110)
[2019-03-23 12:35] LABS: Pathologist Review Reviewed
[2019-03-23 16:20] LABS: Bedside Glucose 192 mg/dL (70-110)
[2019-03-23] MEDS: BMX LIQUID 180 ML 10 ML PO (17:08)
[2019-03-23] MEDS: Atorvastatin Calcium 40 MG Tablet PO (22:48)
[2019-03-23] MEDS: Latanoprost 0.005% 1 Bottle 1 DRP EACH EYE (22:55)
[2019-03-23 23:20] LABS: Bedside Glucose 229 mg/dL (70-110)
[2019-03-23 23:54] LABS: Platelet Estimate MOD DEC (ADEQ)
[2019-03-24] VITALS (13 sets, daily range): BP systolic 115–133; BP diastolic 67–87; PULSE 80–102; RESP 16–18; TEMP 36.1–36.9; O2SAT 94–95
[2019-03-24 05:42] LABS: Absolute Lymphocyte Count 0.33 X10^3/uL (0.83-4.51); Hematocrit 33.8 % (40-54); Hemoglobin 11.6 g/dL (13.0-16.5); Lymphocyte # 0.33 X10^3/ul (4.0); Lymphocyte % 19.3 % (19-41); Mean Corp Hgb Conc 34.3 g/dL (32-36); Mean Corpuscular Hgb 31.8 pg (27.0-32.0); Mean Corpuscular Volume 92.6 fL (80-94); Mean Platelet Vol. 10.8 fl (6.2-12.0); Monocyte# 0.39 X10^3/uL; Monocyte% 22.8 % (0-10); NRBC Flagged by Analyzer 0 % (0-5); Neutrophil # 0.98 X10^3/uL (2.7-7.7); Neutrophil % 57.3 % (47-70); POSITIVE COUNT YES; POSITIVE DIFFERENTIAL YES; POSITIVE MORPHOLOGY YES; Platelet Count 73 K/mm3 (150-450); RBC Distribution Width CV 19.2 % (11.6-14.6); RBC Distribution Width SD 65.3 fl (35.1-43.9); Red Blood Count 3.65 M/mm3 (4.6-6.2); White Blood Count 1.7 K/mm3 (4.4-11.0)
[2019-03-24 05:43] LABS: Differential Indicated SCAN CRITERIA MET
--- NOTE | 2019-03-24 05:49 | NURSING ---
Charge nurse Jaquelin ESCOTO notified this author that the CBC order resulted on this patient this AM was not from a blood specimen from this patient, it was entered into patient's chart in error. Correct CBC resulted, Dr. Jimenez notified of correct CBC results, orders for serial H&H's and OB Stool cancelled per Dr. Jimenez.
[2019-03-24 05:56] LABS: Anion Gap 7 (5-15); BUN 24 mg/dL (7-18); BUN/Creat Ratio 45.4 RATIO (10-20); Calcium,Total 6.9 mg/dL (8.5-10.1); Chloride 109 mmol/L (98-107); Creatinine, Serum 0.53 mg/dL (0.70-1.30); EST Glomerular Filtration Rate 161 mL/min (>60); Est Glom Filt Rate - Afr Amer 195 mL/min (>60); Estimated Creatinine Clearance 67.98 ml/min; Glucose 183 mg/dL (74-106); Potassium 3.7 mmol/L (3.5-5.1); Sodium Level 140 mmol/L (136-145)
[2019-03-24 06:31] LABS: Anisocytosis 1+; Differential Comment SCANNED; Hypochromasia 1+; Microcytosis 1+; Ovalocyte 1+; Polychromasia RARE
[2019-03-24] MEDS: oxyCODONE 5 MG Tablet PO ×3 (06:50→16:59)
[2019-03-24] MEDS: Sucralfate 1 GM Tablet PO ×4 (06:51→22:09)
[2019-03-24] MEDS: Levothyroxine 150 MCG Tablet PO (06:51)
[2019-03-24] MEDS: 0.9% Saline Lock 10 ML Syringe IV ×2 (06:51→22:25)
--- NOTE | 2019-03-24 07:14 | PCM.PN.HOSP ---
Patient Problems: Active and Suspected Problems (Last Reviewed 03/18/19 @ 09:31 by Nhi Lee) Acute respiratory failure with hypoxia (Acute) CAP (community acquired pneumonia) (Acute) Atrial fibrillation with rapid ventricular response (Acute) Sepsis due to pneumonia (Acute) Severe sepsis (Acute) Subjective: Patient notes no acute events overnight per self and per nursing report. He states that he does feel mildly lightheaded when he exerts himself and needs to sit at the bedside prior to activity with therapies. Per discussion with PT and OT he is very weak and following discussions amenable to longterm facility transition. Patient notes that he does have coughing primarily when he is moving and understands that this will take time to resolve. Patient notes that dyspnea continues to improve. Patient denies fevers, chills, nausea, emesis, abdominal pain, chest pain or worsened dyspnea. Objective: Physical Examination: General: awake, alert, oriented x 3 and cooperative, seated upright at the bedside, mildly fatigued, coughing fit. Skin: normal color, turgor, no icterus, cyanosis. HEENT: AT/NC, EOMI, PERRLA, mildly dry MM. Lungs: Diminished breath sounds, greater bases, improved effort, currently no rales, resolving rhonchi, no wheezing. Heart: Regular rate and rhythm; no gallop, rub audible. Abdomen: soft, obese, NTTP, ND, normal BS. Extremities: no cyanosis, clubbing, minimal bilateral lower extremity ankle edema, nonpitting. Neurological: patient awake, alert, oriented x 3; cognitive function intact; pupils equally reactive to light and accomodation; cranial nerves II-XII grossly normal, moving all 4 extremities, no focal deficits, strength improving but remains moderately to severely global decrease secondary to acute presentation. Psychiatric: affect appears fatigued, more interactive, no acute evidence of depressive or anxiety feelings. Vitals/I&O's: Vital Signs Temp Pulse Resp BP Pulse Ox 98.4 F 80 18 115/67 94 03/24/19 04:10 03/24/19 04:33 03/24/19 04:33 03/24/19 04:10 03/24/19 04:33 Oxygen Flow Rate (L/min) 3 Oxygen Delivery Method Nasal Cannula Weight: 224 lb 6.889 oz Body Mass Index (BMI) 30.7 Intake and Output for Last 24 Hours 03/22/19 03/23/19 03/24/19 23:59 23:59 23:59 Intake Total 5806.66 / 5806.66 1446 / 2211 1245 / 1245 Output Total 1525 / 1525 950 / 1350 1200 / 1200 Balance 4281.66 / 4281.66 496 / 861 45 / 45 Microbiology Past 72 Hours 03/22/19 13:25 Urine, Clean Catch Urine Culture - Preliminary Culture exhibits no growth. 03/22/19 13:25 Urine, Clean Catch Streptococcus pneumoniae Antigen (M - Final 03/22/19 13:25 Urine, Clean Catch Legionella Antigen - Final 03/22/19 07:45 Interface Orders Respiratory Panel (PCR) - Final Parainfluenza 4 03/22/19 07:45 Mucosa - Nasopharyngeal Influenza Types A,B Direct FA (MELITON) - Final Laboratory Results 03/23/19 04:00: Diff Path Review Reviewed, Platelet Estimate MOD DEC 03/23/19 04:00: Phosphorus 2.4 L, Magnesium 1.6, TSH 1.20, Free T4 1.31 03/23/19 04:00: Hemoglobin A1c 7.4 H 03/23/19 11:25: POC Glucose 209 H 03/23/19 16:05: POC Glucose 192 H 03/23/19 23:16: POC Glucose 229 H 03/24/19 03:55: WBC Cancelled, Corrected WBC Cancelled, RBC Cancelled, Hgb Cancelled, Hct Cancelled, MCV Cancelled, MCH Cancelled, MCHC Cancelled, RDW Std Deviation Cancelled, RDW Coeff of Mary Ellen Cancelled, Plt Count Cancelled, MPV Cancelled, Immature Gran % (Auto) Cancelled, Neut % (Auto) Cancelled, Lymph % (Auto) Cancelled, Schuyler % (Auto) Cancelled, Eos % (Auto) Cancelled, Baso % (Auto) Cancelled, Absolute Neuts (auto) Cancelled, Absolute Lymphs (auto) Cancelled, Total Counted Cancelled, Neutrophils % (Manual) Cancelled, Band Neutrophils % Cancelled, Lymphocytes % (Manual) Cancelled, Monocytes % (Manual) Cancelled, Eosinophils % (Manual) Cancelled, Basophils % (Manual) Cancelled, Metamyelocytes % Cancelled, Myelocytes % Cancelled, Promyelocytes % Cancelled, Blast Cells % Cancelled, Plasma Cell % (Manual) Cancelled, Other Cells % Cancelled, Nucleated RBC % Cancelled, Nucleated RBCs/100 WBC Cancelled, Differential Comment Cancelled, Diff Path Review Cancelled, Hypersegmented Neuts Cancelled, Atypical Lymphocytes Cancelled, Reactive Lymphocytes Cancelled, Smudge Cells Cancelled, Toxic Granulation Cancelled, Toxic Vacuolation Cancelled, Dohle Bodies Cancelled, Tristan Rods Cancelled, Platelet Estimate Cancelled, Plt Morphology Comment Cancelled, RBC Morphology Cancelled, Polychromasia Cancelled, Hypochromasia Cancelled, Poikilocytosis Cancelled, Basophilic Stippling Cancelled, Anisocytosis Cancelled, Microcytosis Cancelled, Macrocytosis Cancelled, Spherocytes Cancelled, Sickle Cells Cancelled, Target Cells Cancelled, Tear Drop Cells Cancelled, Ovalocytes Cancelled, Stomatocytes Cancelled, [place] Bodies Cancelled, Rogers Cells Cancelled, Bite Cells Cancelled, Crenated Cell Cancelled, Acanthocytes (Spur) Cancelled, Rouleaux Cancelled, Schistocytes Cancelled 03/24/19 03:55: Sodium Cancelled, Potassium Cancelled, Chloride Cancelled, Carbon Dioxide Cancelled, Anion Gap Cancelled, BUN Cancelled, Creatinine Cancelled, Estim Creat Clear Calc Cancelled, Est GFR (MDRD) Af Amer Cancelled, Est GFR (MDRD) Non-Af Cancelled, BUN/Creatinine Ratio Cancelled, Glucose Cancelled, Calcium Cancelled 03/24/19 05:14: WBC 1.7 L, RBC 3.65 L, Hgb 11.6 L, Hct 33.8 L, MCV 92.6, MCH 31.8, MCHC 34.3, RDW Std Deviation 65.3 H, RDW Coeff of Mary Ellen 19.2 H, Plt Count 73 L, MPV 10.8, Immature Gran % (Auto) 0.600, Neut % (Auto) 57.3, Lymph % (Auto) 19.3, Schuyler % (Auto) 22.8 H, Eos % (Auto) 0.0, Baso % (Auto) 0.0, Absolute Neuts (auto) 1.0 L, Absolute Lymphs (auto) 0.33 L, Nucleated RBC % 0, Differential Comment SCANNED, Polychromasia RARE, Hypochromasia 1+, Anisocytosis 1+, Microcytosis 1+, Ovalocytes 1+ 03/24/19 05:14: Sodium 140, Potassium 3.7, Chloride 109 H, Carbon Dioxide 24.0, Anion Gap 7, BUN 24 H, Creatinine 0.53 L, Estim Creat Clear Calc 67.98, Est GFR (MDRD) Af Amer 195, Est GFR (MDRD) Non-Af 161, BUN/Creatinine Ratio 45.4 H, Glucose 183 H, Calcium 6.9 L Current Medications Acyclovir (Zovirax) 200 mg PO BID [facility] Last Admin: 03/23/19 22:50 Dose: 200 mg Documented by: Albuterol Sulfate (Ventolin Aerosols) 2.5 mg INHALATION Q2H PRN PRN PRN Reason: dyspnea, wheezing Albuterol/Ipratropium (Duoneb) 3 ml INHALATION Q4H.RT PRN PRN Reason: WHEEZING Allopurinol (Zyloprim) 300 mg PO DAILY [facility] Last Admin: 03/23/19 09:12 Dose: 300 mg Documented by: Apixaban (Eliquis) 5 mg PO BID [facility] Last Admin: 03/23/19 22:47 Dose: 5 mg Documented by: Atorvastatin Calcium (Lipitor) 40 mg PO QHS [facility] Last Admin: 03/23/19 22:48 Dose: 40 mg Documented by: Calcitriol (Rocaltrol) 0.25 mcg PO DAILY [facility] Last Admin: 03/23/19 09:09 Dose: 0.25 mcg Documented by: Dextrose (D50w Syringe) 0 gm IV X1 PRN; Protocol PRN Reason: Hypoglycemia Ezetimibe (Zetia) 10 mg PO DAILY [facility] Last Admin: 03/23/19 09:09 Dose: 10 mg Documented by: Fentanyl Citrate (Sublimaze (100mcg Ampule)) 50 mcg IV Q2H PRN PRN PRN Reason: Pain Score 1-10/10 Last Admin: 03/23/19 08:03 Dose: 50 mcg Documented by: Glucagon () 1 mg IM .X1 PRN PRN Reason: Hypoglycemia Guaifenesin (Mucinex) 1,200 mg PO BID [facility] Last Admin: 03/23/19 22:49 Dose: 1,200 mg Documented by: Ceftriaxone Sodium 2 gm/ (Sodium Chloride) 50 mls @ 100 mls/hr IV Q24 [facility] Stop: 03/29/19 10:01 Last Infusion: 03/23/19 09:33 Dose: Infused Documented by: Azithromycin 500 mg/ Dextrose 255 mls @ 250 mls/hr IV Q24 [facility] Stop: 03/27/19 10:01 Last Infusion: 03/23/19 11:15 Dose: Infused Documented by: Latanoprost (Xalatan Opthalmic) 1 drop EACH EYE QHS [facility] Last Admin: 03/23/19 22:55 Dose: 1 drop Documented by: Levothyroxine Sodium (Synthroid) 150 mcg PO DAILY@0600 [facility] Last Admin: 03/24/19 06:51 Dose: 150 mcg Documented by: Lidocaine/Diphenhydr/Alum/Mg/Simeth () 10 ml PO Q3H PRN PRN PRN Reason: sore mouth, difficulty eating Last Admin: 03/23/19 17:08 Dose: 10 ml Documented by: Loratadine (Claritin) 5 mg PO DAILY [facility] Last Admin: 03/23/19 09:09 Dose: 5 mg Documented by: Methylprednisolone (Solu-Medrol) 40 mg IV Q8 [facility] Last Admin: 03/24/19 06:51 Dose: 40 mg Documented by: Metoprolol Tartrate (Lopressor (Beta Marion)) 25 mg PO BID [facility] Last Admin: 03/23/19 22:49 Dose: 25 mg Documented by: Non-Formulary Medication (Pomalidomide [Pomalyst]) 1 mg PO DAILY [facility] Last Admin: 03/23/19 09:12 Dose: 1 mg Documented by: Nutritional Formula (Lactose Free) (Ensure Enlive) 120 ml PO 4X/DAY [facility] Last Admin: 03/23/19 22:46 Dose: 120 ml Documented by: Ondansetron HCl (Zofran) 4 mg IV Q8H PRN PRN PRN Reason: NAUSEA/VOMITING Last Admin: 03/22/19 12:43 Dose: 4 mg Documented by: Oxycodone HCl (Oxyir) 5 mg PO Q6 [facility] Last Admin: 03/24/19 06:50 Dose: 5 mg Documented by: Pantoprazole Sodium (Protonix) 40 mg PO DAILY [facility] Last Admin: 03/23/19 09:09 Dose: 40 mg Documented by: Potassium Chloride (K-Dur) 20 meq PO DAILYCM [facility] Last Admin: 03/23/19 07:55 Dose: 20 meq Documented by: Pregabalin (Lyrica) 50 mg PO BID [facility] Last Admin: 03/23/19 22:46 Dose: 50 mg Documented by: Sodium Chloride () 10 - 40 ml IV UD PRN PRN Reason: SALINE FLUSH Last Admin: 03/24/19 06:51 Dose: 10 ml Documented by: Sucralfate (Carafate) 1 gm PO 1HR_ACHS [facility] Last Admin: 03/24/19 06:51 Dose: 1 gm Documented by: Tamsulosin HCl (Flomax) 0.4 mg PO BID@0830,1730 [facility] Last Admin: 03/23/19 16:58 Dose: 0.4 mg Documented by: STROKE Vital Signs/Narrative: Vital Signs Temp Pulse Resp BP Pulse Ox 03/24/19 04:33 80 18 94 03/24/19 04:10 98.4 F 91 16 115/67 94 Medical Necessity - Tobacco Use Smoking Status: Former smoker Tobacco Use: Cigarettes Assessment/Plan All Active Problems (Last Reviewed 03/18/19 @ 09:31 by Nhi Lee) Acute respiratory failure with hypoxia (Acute) CAP (community acquired pneumonia) (Acute) Atrial fibrillation with rapid ventricular response (Acute) Sepsis due to pneumonia (Acute) Severe sepsis (Acute) Junctional rhythm (Acute 01/10/19) History of non-ST elevation myocardial infarction (NSTEMI) (Resolved 2004) The patient is a 71 y/o M w/ PMHx: PAF, CAD, HTN, HLD, Hx Thyroid CA, 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 1. Acute Septic Shock secondary to Acute Hypoxic Respiratory Failure secondary to LLL CAP and Acute Parainfluenza 4: Admitted to the ICU, maintained on cardiac monitoring, continued IVF bolus per protocol with LA trending w/ initial 3.9-->repeat 2.5, continued initially on IV rocephin (end date 03/29/19) and azithromycin (end date 03/27/19), maintained on IV solumedrol with prednisone transition with plan 5-day burst, Legionella and streptococcal antigens negative, blood culture per ED with no growth to date, respiratory viral panel with positive parainfluenza, sputum culture with preliminarily normal jennie, BIPAP initially, transitioning off w/ PRN needs currently. 03/23/19 ICU-->PCU status. PT/OT/case management consultations with obvious longterm facility needs and patient amenable. If continues to clinically improve will plan transition to longterm facility 03/25/2019. 2. Paroxsymal atrial fibrillation w/ RVR: EKG in ED w/ atrial fibrillation w/ RVR. Held off on Cardizem and metoprolol initially secondly to hypotension secondary to #1, maintained on telemetry, cardiac enzyme serial set < 0.015 x 3, BNP 107.6, obtain magnesium level, ECHO w/ normal LV size, EF 50%, mildly enlarged LA, stage I diastolic dysfunction, mild TBI, PASP 33 mmHg global longitudinal strain mildly abnormal, and free T4 normal, continued on eliquis. 3. Acute on Chronic Diastolic CHF: Mildly elevated BNP, concern for overload noted per ICU physician, could have been result of prolonged atrial fibrillation with RVR, cardiac enzymes normal x 3, EKG as noted w/ atrial fibrillation with RVR, ECHO w/ normal LV size, EF 50%, mildly enlarged LA, stage I diastolic dysfunction, mild TBI, PASP 33 mmHg global longitudinal strain mildly abnormal, improved BP, maintained on eliquis, 03/23/19 metoprolol added back, not on ACEI/ARB with low normal BP, statin. Lasix 40 mg IV x 1 administered per ICU. 4. Urinary retention: Patient -1-03/23 overnight urinary retention, Munoz catheter placed, 03/23/19 initiated twice daily Flomax w/ ICU d/c munoz in AM; however, ongoing retention w/ munoz replacement, successful removal 03/24/19. 4. Diabetes mellitus type II: Not on regimen, maintained following admit on ACHS ISS, accu checks, obtained hemoglobin A1c, 7.4%, nutrition consultation for education and teaching. 5. CAD: Maintained on eliquis, 03/23/19 restart metoprolol, monitor BP prior to additional agents, not on KRISTEN/ARB, statin 6. Multiple Myeloma: Ongoing current treatment, on daratumumab, following w/ Oncology outpatient, continued on prophylactic acyclovir, mag and phos requested. 7. Pancytopenia, Chronic: Secondary to Multiple Myeloma, ongoing treatment as noted, admission CBC w/ WBC 3.4, Hgb 14.8, Plts 108-->03/24/19 CBC w/ WBC 1.7, Hgb 11.6, Plt 73, continue to monitor. 8. Hx Thyroid CA: s/p thyroidectomy. 9. 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 10. Hypertension: Initially held, ICU added IV BB, transitioned 03/23/19 to metoprolol. 11. Hyperlipidemia: Maintained on Zetia. 12. Hypothyroidism: Continue home synthroid regimen, TSH and FT4 normal. 13. GERD: Continued on PPI. 14. Hx DVT: Maintained on eliquis. 15. DVT Prophylaxis: SCDs, eliquis. 16. CODE STATUS: Full code. Code Visit Inpatient E&M: 96303 Subs Hosp L2
[2019-03-24 08:26] LABS: Bedside Glucose 159 mg/dL (70-110)
--- NOTE | 2019-03-24 09:13 | PN_ITS ---
Patient Problems: Active and Suspected Problems (Last Reviewed 03/18/19 @ 09:31 by Nhi Lee) Acute respiratory failure with hypoxia (Acute) CAP (community acquired pneumonia) (Acute) Atrial fibrillation with rapid ventricular response (Acute) Sepsis due to pneumonia (Acute) Severe sepsis (Acute) Subjective: Patient did okay overnight. Patient is starting to feel subjectively improved compared to previous. Patient still has a productive cough and is requiring supplemental oxygen to maintain saturations. No bleeding is been reported. Patient is asking to be transition to a regular diet. - Physical Exam Vitals/I&O's: Vital Signs Temp Pulse Resp BP Pulse Ox 36.9 C 84 18 115/67 95 03/24/19 04:10 03/24/19 06:49 03/24/19 04:33 03/24/19 04:10 03/24/19 07:40 Oxygen Flow Rate (L/min) 2 Oxygen Delivery Method Nasal Cannula Weight: 101.8 kg Body Mass Index (BMI) 30.7 Intake and Output for Last 24 Hours 03/22/19 03/23/19 03/24/19 23:59 23:59 23:59 Intake Total 5806.66 / 5806.66 1446 / 2211 1245 / 1245 Output Total 1525 / 1525 950 / 1350 1200 / 1200 Balance 4281.66 / 4281.66 496 / 861 45 / 45 General: Alert, Oriented x3, Cooperative, No apparent distress, - - No conversational dyspnea. Speaking in full sentences. HEENT: Atraumatic, PERRLA, EOMI, Normocephalic, - - No scleral icterus or injection noted Oral: Moist Mucosa, No Gingival or Mucosal Lesions/ Ulcerations Neck: Supple, No JVD, No Nodes, Trachea Midline Lungs: No wheeze, No rales, Diminished, Rhonchi, - - Symmetric expansion. No dullness to percussion. Cardiovascular: Regular rate, Regular Rhythm, Normal S1, Normal S2, No murmurs, No rub noted, No Gallop Abdomen: Bowel Sounds Present, Soft, Non Tender, Non-Distended Extremities: No clubbing, No cyanosis, Edema Skin: No rashes, No breakdown Musculoskeletal: No Tenderness to Palpation of Joints or Extremities Lymphatic: No Cervical, Supraclavicular, or Inguinal Adenopathy Neurological: Cranial nerves II-XII grossly intact, Neuro grossly intact, Motor Exam 5/5 strength throughout Psych/Mental Status: Alert and oriented to time, place, person, mood and affect Microbiology Past 72 Hours 03/22/19 13:25 Urine, Clean Catch Urine Culture - Final Culture exhibits no growth. 03/22/19 13:25 Urine, Clean Catch Streptococcus pneumoniae Antigen (M - Final 03/22/19 13:25 Urine, Clean Catch Legionella Antigen - Final 03/22/19 07:45 Interface Orders Respiratory Panel (PCR) - Final Parainfluenza 4 03/22/19 07:45 Mucosa - Nasopharyngeal Influenza Types A,B Direct FA (MELITON) - Final Laboratory Results 03/23/19 04:00: Diff Path Review Reviewed, Platelet Estimate MOD 03/23/19 11:25: POC Glucose 209 H 03/23/19 16:05: POC Glucose 192 H 03/23/19 23:16: POC Glucose 229 H 03/24/19 03:55: WBC Cancelled, Corrected WBC Cancelled, RBC Cancelled, Hgb Cancelled, Hct Cancelled, MCV Cancelled, MCH Cancelled, MCHC Cancelled, RDW Std Deviation Cancelled, RDW Coeff of Mary Ellen Cancelled, Plt Count Cancelled, MPV Cancelled, Immature Gran % (Auto) Cancelled, Neut % (Auto) Cancelled, Lymph % (Auto) Cancelled, Erath % (Auto) Cancelled, Eos % (Auto) Cancelled, Baso % (Auto) Cancelled, Absolute Neuts (auto) Cancelled, Absolute Lymphs (auto) Cancelled, Total Counted Cancelled, Neutrophils % (Manual) Cancelled, Band Neutrophils % Cancelled, Lymphocytes % (Manual) Cancelled, Monocytes % (Manual) Cancelled, Eosinophils % (Manual) Cancelled, Basophils % (Manual) Cancelled, Metamyelocytes % Cancelled, Myelocytes % Cancelled, Promyelocytes % Cancelled, Blast Cells % Cancelled, Plasma Cell % (Manual) Cancelled, Other Cells % Cancelled, Nucleated RBC % Cancelled, Nucleated RBCs/100 WBC Cancelled, Differential Comment Cancelled, Diff Path Review Cancelled, Hypersegmented Neuts Cancelled, Atypical Lymphocytes Cancelled, Reactive Lymphocytes Cancelled, Smudge Cells Cancelled, Toxic Granulation Cancelled, Toxic Vacuolation Cancelled, Dohle Bodies Cancelled, Tristan Rods Cancelled, Platelet Estimate Cancelled, Plt Morphology Comment Cancelled, RBC Morphology Cancelled, Polychromasia Cancelled, Hypochromasia Cancelled, Poikilocytosis Cancelled, Basophilic Stippling Cancelled, Anisocytosis Cancelled, Microcytosis Cancelled, Macrocytosis Cancelled, Spherocytes Cancelled, Sickle Cells Cancelled, Target Cells Cancelled, Tear Drop Cells Cancelled, Ovalocytes Cancelled, Stomatocytes Cancelled, Alexander-[place] Bodies Cancelled, Harwood Cells Cancelled, Bite Cells Cancelled, Crenated Cell Cancelled, Acanthocytes (Spur) Cancelled, Rouleaux Cancelled, Schistocytes Cancelled 03/24/19 03:55: Sodium Cancelled, Potassium Cancelled, Chloride Cancelled, Carbon Dioxide Cancelled, Anion Gap Cancelled, BUN Cancelled, Creatinine Cancelled, Estim Creat Clear Calc Cancelled, Est GFR (MDRD) Af Amer Cancelled, Est GFR (MDRD) Non-Af Cancelled, BUN/Creatinine Ratio Cancelled, Glucose Cancelled, Calcium Cancelled 03/24/19 05:14: WBC 1.7 L, RBC 3.65 L, Hgb 11.6 L, Hct 33.8 L, MCV 92.6, MCH 31.8, MCHC 34.3, RDW Std Deviation 65.3 H, RDW Coeff of Mary Ellen 19.2 H, Plt Count 73 L, MPV 10.8, Immature Gran % (Auto) 0.600, Neut % (Auto) 57.3, Lymph % (Auto) 19.3, Erath % (Auto) 22.8 H, Eos % (Auto) 0.0, Baso % (Auto) 0.0, Absolute Neuts (auto) 1.0 L, Absolute Lymphs (auto) 0.33 L, Nucleated RBC % 0, Differential Comment SCANNED, Polychromasia RARE, Hypochromasia 1+, Anisocytosis 1+, M icrocytosis 1+, Ovalocytes 1+ 03/24/19 05:14: Sodium 140, Potassium 3.7, Chloride 109 H, Carbon Dioxide 24.0, Anion Gap 7, BUN 24 H, Creatinine 0.53 L, Estim Creat Clear Calc 67.98, Est GFR (MDRD) Af Amer 195, Est GFR (MDRD) Non-Af 161, BUN/Creatinine Ratio 45.4 H, Glucose 183 H, Calcium 6.9 L 03/24/19 06:49: POC Glucose 159 H Current Medications Acyclovir (Zovirax) 200 mg PO BID [facility] Last Admin: 03/23/19 22:50 Dose: 200 mg Documented by: Albuterol Sulfate (Ventolin Aerosols) 2.5 mg INHALATION Q2H PRN PRN PRN Reason: dyspnea, wheezing Albuterol/Ipratropium (Duoneb) 3 ml INHALATION Q4H.RT PRN PRN Reason: WHEEZING Allopurinol (Zyloprim) 300 mg PO DAILY [facility] Last Admin: 03/23/19 09:12 Dose: 300 mg Documented by: Apixaban (Eliquis) 5 mg PO BID [facility] Last Admin: 03/23/19 22:47 Dose: 5 mg Documented by: Atorvastatin Calcium (Lipitor) 40 mg PO QHS [facility] Last Admin: 03/23/19 22:48 Dose: 40 mg Documented by: Calcitriol (Rocaltrol) 0.25 mcg PO DAILY [facility] Last Admin: 03/23/19 09:09 Dose: 0.25 mcg Documented by: Dextrose (D50w Syringe) 0 gm IV X1 PRN; Protocol PRN Reason: Hypoglycemia Ezetimibe (Zetia) 10 mg PO DAILY [facility] Last Admin: 03/23/19 09:09 Dose: 10 mg Documented by: Fentanyl Citrate (Sublimaze (100mcg Ampule)) 50 mcg IV Q2H PRN PRN PRN Reason: Pain Score 1-10/10 Last Admin: 03/23/19 08:03 Dose: 50 mcg Documented by: Glucagon () 1 mg IM .X1 PRN PRN Reason: Hypoglycemia Guaifenesin (Mucinex) 1,200 mg PO BID [facility] Last Admin: 03/23/19 22:49 Dose: 1,200 mg Documented by: Ceftriaxone Sodium 2 gm/ (Sodium Chloride) 50 mls @ 100 mls/hr IV Q24 [facility] Stop: 03/29/19 10:01 Last Infusion: 03/23/19 09:33 Dose: Infused Documented by: Azithromycin 500 mg/ Dextrose 255 mls @ 250 mls/hr IV Q24 [facility] Stop: 03/27/19 10:01 Last Infusion: 03/23/19 11:15 Dose: Infused Documented by: Latanoprost (Xalatan Opthalmic) 1 drop EACH EYE QHS [facility] Last Admin: 03/23/19 22:55 Dose: 1 drop Documented by: Levothyroxine Sodium (Synthroid) 150 mcg PO DAILY@0600 [facility] Last Admin: 03/24/19 06:51 Dose: 150 mcg Documented by: Lidocaine/Diphenhydr/Alum/Mg/Simeth () 10 ml PO Q3H PRN PRN PRN Reason: sore mouth, difficulty eating Last Admin: 03/23/19 17:08 Dose: 10 ml Documented by: Loratadine (Claritin) 5 mg PO DAILY [facility] Last Admin: 03/23/19 09:09 Dose: 5 mg Documented by: Methylprednisolone (Solu-Medrol) 40 mg IV Q8 [facility] Last Admin: 03/24/19 06:51 Dose: 40 mg Documented by: Metoprolol Tartrate (Lopressor (Beta Marion)) 25 mg PO BID [facility] Last Admin: 03/23/19 22:49 Dose: 25 mg Documented by: Non-Formulary Medication (Pomalidomide [Pomalyst]) 1 mg PO DAILY [facility] Last Admin: 03/23/19 09:12 Dose: 1 mg Documented by: Nutritional Formula (Lactose Free) (Ensure Enlive) 120 ml PO 4X/DAY [facility] Last Admin: 03/23/19 22:46 Dose: 120 ml Documented by: Ondansetron HCl (Zofran) 4 mg IV Q8H PRN PRN PRN Reason: NAUSEA/VOMITING Last Admin: 03/22/19 12:43 Dose: 4 mg Documented by: Oxycodone HCl (Oxyir) 5 mg PO Q6 [facility] Last Admin: 03/24/19 06:50 Dose: 5 mg Documented by: Pantoprazole Sodium (Protonix) 40 mg PO DAILY [facility] Last Admin: 03/23/19 09:09 Dose: 40 mg Documented by: Potassium Chloride (K-Dur) 20 meq PO DAILYCM [facility] Last Admin: 03/23/19 07:55 Dose: 20 meq Documented by: Pregabalin (Lyrica) 50 mg PO BID [facility] Last Admin: 03/23/19 22:46 Dose: 50 mg Documented by: Sodium Chloride () 10 - 40 ml IV UD PRN PRN Reason: SALINE FLUSH Last Admin: 03/24/19 06:51 Dose: 10 ml Documented by: Sucralfate (Carafate) 1 gm PO 1HR_ACHS [facility] Last Admin: 03/24/19 06:51 Dose: 1 gm Documented by: Tamsulosin HCl (Flomax) 0.4 mg PO BID@0830,1730 [facility] Last Admin: 03/23/19 16:58 Dose: 0.4 mg Documented by: Medical Necessity - Tobacco Use Smoking Status: Former smoker Tobacco Use: Cigarettes Assessment/Plan All Active Problems (Last Reviewed 03/18/19 @ 09:31 by Nhi Lee) Acute respiratory failure with hypoxia (Acute) CAP (community acquired pneumonia) (Acute) Atrial fibrillation with rapid ventricular response (Acute) Sepsis due to pneumonia (Acute) Severe sepsis (Acute) Junctional rhythm (Acute 01/10/19) History of non-ST elevation myocardial infarction (NSTEMI) (Resolved 2004) RECOMMENDATIONS: 1. Wean oxygen as tolerated 2. BiPAP rescue as necessary 3. Reasonable to narrow antibiotic spectrum if blood cultures negative 4. Increase activity as tolerated 5. Okay to transition to regular diet from my perspective 6. Transition to prednisone to complete a 5-day burst IMPRESSIONS: 1. Acute hypoxic respiratory failure secondary to left lower lobe pneumonia secondary to parainfluenza virus and pneumococcus Patient with a history of a left upper lobectomy and now has a left lower lobe pneumonia. Patient is on antibiotics. Bronchodilators will likely ex acerbate patient's A. fib with RVR, so we will try to avoid. Patient would likely benefit from a 5-day course of steroid therapy. If cultures negative at 48 hours, narrowing of antibiotic spectrum would be appropriate. 2. Severe sepsis secondary to left lower lobe pneumonia Blood pressure is much improved at this time. Patient with pneumococcal antigen positive and this is likely leading to the severe sepsis. This would be treated by ceftriaxone alone. Blood pressure is not been an issue. 3. A. fib with RVR/probable diastolic CHF/coronary artery disease Patient currently with acceptable rate. Continue current therapy. Patient would benefit from gentle diuresis from a pulmonary perspective 4. Multiple cancers and history of thrombosis Patient did take his Eliquis this morning. Reasonable to continue with Eliquis for now. Chemotherapy has been discontinued at the request of oncology. 5. Diabetes mellitus Patient being placed on steroid therapy. Will need to watch blood sugars closely. Patient should have sliding scale insulin with every 6 blood sugar checks. 6. Advanced age/odynophagia/gout/GERD/obesity/hyperlipidemia/acquired hypothyroidism Complicates care, management, recovery and prognosis. Okay to use Magic mouthwash if necessary. Continue home Protonix. Code Visit Inpatient E&M: 74734 Subs Hosp L2
[2019-03-24] MEDS: Tamsulosin HCl 0.4 MG Capsule PO ×2 (10:18→16:59)
[2019-03-24] MEDS: Calcitriol 0.25 MCG Capsule PO (10:18)
[2019-03-24] MEDS: Acyclovir 200 MG Capsule PO ×2 (10:18→22:09)
[2019-03-24] MEDS: APIXABAN 5 MG TABLET PO ×2 (10:19→22:11)
[2019-03-24] MEDS: Metoprolol Tartrate 25 MG Tablet PO ×2 (10:19→22:10)
[2019-03-24] MEDS: Ezetimibe 10 MG Tablet PO (10:20)
[2019-03-24] MEDS: Pantoprazole Sodium 40 MG Tablet PO (10:20)
[2019-03-24] MEDS: guaiFENesin 1,200 MG Tablet 1200 MG PO ×2 (10:20→22:11)
[2019-03-24] MEDS: Allopurinol 300 MG Tablet PO (10:20)
[2019-03-24] MEDS: Loratadine 10 MG Tablet 5 MG PO (10:21)
[2019-03-24] MEDS: Pregabalin 50 MG Capsule PO ×2 (10:27→22:19)
[2019-03-24] MEDS: Senna/Docusate Sodium 1 Tablet PO (10:32)
[2019-03-24 10:51] LABS: Bedside Glucose 259 mg/dL (70-110)
--- NOTE | 2019-03-24 11:12 | CASEMGMT ---
Therapy indicated patient will need to go to a fpc for rehab and he is in agreement. ALFREDO met with patient, introduced self and role at [facility]. Patient confirmed he will need rehab and he would like to go to [facility] as that is where is is currently. ALFREDO told him SW will work on this and that he will have his qualifying stay with Medicare tomorrow and days 1-20 will be covered at 100%. ALFREDO called [facility] with referral and also faxed referral. Diya GILLESPIE MSW
[2019-03-24] MEDS: predniSONE 20 MG Tablet 40 MG PO (11:13)
[2019-03-24] MEDS: Insulin Lispro 100 UNIT/ML INSULN.PEN SC ×2 (15:40→22:26)
[2019-03-24 15:56] LABS: Bedside Glucose 195 mg/dL (70-110)
[2019-03-24] MEDS: Latanoprost 0.005% 1 Bottle 1 DRP EACH EYE (22:09)
[2019-03-24] MEDS: Atorvastatin Calcium 40 MG Tablet PO (22:11)
[2019-03-24] MEDS: fentaNYL 100 MCG/2 ML Ampul 50 MCG IV (22:19)
[2019-03-24 22:36] LABS: Bedside Glucose 182 mg/dL (70-110)
[2019-03-25] MEDS: oxyCODONE 5 MG Tablet PO ×3 (00:33→11:54)
[2019-03-25 02:59] VITALS: PULSE 73
[2019-03-25 04:00] VITALS: BP 131/78; PULSE 75; RESP 16; TEMP 36.2; O2SAT 96
[2019-03-25 06:12] LABS: Absolute Lymphocyte Count 0.49 X10^3/uL (0.83-4.51); Absolute Neutrophil Count 0.6 X10^3/uL (2.0-7.7); Hematocrit 33.9 % (40-54); Hemoglobin 11.5 g/dL (13.0-16.5); Lymphocyte # 0.49 X10^3/ul (4.0); Lymphocyte % 28.5 % (19-41); Mean Corp Hgb Conc 33.9 g/dL (32-36); Mean Corpuscular Hgb 31.5 pg (27.0-32.0); Mean Corpuscular Volume 92.9 fL (80-94); Mean Platelet Vol. 11.8 fl (6.2-12.0); Monocyte# 0.63 X10^3/uL; Monocyte% 36.6 % (0-10); NRBC Flagged by Analyzer 0 % (0-5); Neutrophil # 0.59 X10^3/uL (2.7-7.7); Neutrophil % 34.3 % (47-70); POSITIVE COUNT YES; POSITIVE DIFFERENTIAL YES; POSITIVE MORPHOLOGY YES; Platelet Count 51 K/mm3 (150-450); RBC Distribution Width CV 19.5 % (11.6-14.6); RBC Distribution Width SD 66.5 fl (35.1-43.9); Red Blood Count 3.65 M/mm3 (4.6-6.2); White Blood Count 1.7 K/mm3 (4.4-11.0)
[2019-03-25 06:17] LABS: Differential Indicated SCAN CRITERIA MET
[2019-03-25] MEDS: Sucralfate 1 GM Tablet PO ×2 (06:41→11:54)
[2019-03-25] MEDS: Levothyroxine 150 MCG Tablet PO (06:42)
[2019-03-25 06:46] LABS: Bedside Glucose 147 mg/dL (70-110)
[2019-03-25 06:53] LABS: Anisocytosis 1+; Differential Comment SCANNED
[2019-03-25 06:57] LABS: Anion Gap 4 (5-15); BUN 21 mg/dL (7-18); Calcium,Total 6.9 mg/dL (8.5-10.1); Chloride 108 mmol/L (98-107); EST Glomerular Filtration Rate 140 mL/min (>60); Est Glom Filt Rate - Afr Amer 170 mL/min (>60); Estimated Creatinine Clearance 67.98 ml/min; Glucose 159 mg/dL (74-106); Potassium 3.9 mmol/L (3.5-5.1); Sodium Level 141 mmol/L (136-145)
[2019-03-25] MEDS: Tamsulosin HCl 0.4 MG Capsule PO (09:02)
[2019-03-25] MEDS: Loratadine 10 MG Tablet 5 MG PO (09:03)
[2019-03-25 09:04] VITALS: PULSE 89
[2019-03-25] MEDS: Pantoprazole Sodium 40 MG Tablet PO (09:04)
[2019-03-25] MEDS: guaiFENesin 1,200 MG Tablet 1200 MG PO (09:04)
[2019-03-25] MEDS: Metoprolol Tartrate 25 MG Tablet PO (09:04)
[2019-03-25] MEDS: APIXABAN 5 MG TABLET PO (09:04)
[2019-03-25] MEDS: Ezetimibe 10 MG Tablet PO (09:05)
[2019-03-25] MEDS: Allopurinol 300 MG Tablet PO (09:05)
[2019-03-25] MEDS: Acyclovir 200 MG Capsule PO (09:05)
[2019-03-25] MEDS: Calcitriol 0.25 MCG Capsule PO (09:05)
[2019-03-25] MEDS: Pregabalin 50 MG Capsule PO (09:10)
[2019-03-25 10:00] VITALS: BP 127/61; PULSE 81; RESP 18; TEMP 36.9; O2SAT 96
[2019-03-25] MEDS: predniSONE 20 MG Tablet 40 MG PO (10:10)
--- NOTE | 2019-03-25 11:31 | CASEMGMT ---
Healthcare POA form is on the paper chart with the LW provision initialed. Fadia is listed first, son Mauricio Enriquez as the first alternate and daughter Leslie Gunderson as the second alternate. BERHANE Greer
--- NOTE | 2019-03-25 11:39 | PCM.TXEXTCAR ---
- Diet 03/23/19 09:03 Regular Diet (nutrition recommendation secondary to malnutrition concerns) Once clinically improving may consider transition to ADA 1800 diet if appropriate. - Routine Orders/Code Status Enema Type: Fleetz Enema Frequency: Daily PRN Suppository Type: Dulcolax 10mg Suppository Frequency: Daily PRN O2 Liters per Minute: 3 O2 Frequency: Continuous Keep PO Greater than or Equal to (%): 92 - Wean to room air as able. Routine Lab Work: - - Repeat CBC, BMP within 1 week. Code Status: Full Code - Suggestions for Active Care Change Position every (hours): 2 Hours to sit in a chair: 6 Times a day to sit in chair: 3 - Therapies Weight Bearing: Full weight bearing Physical Therapy: Eval and Treat Occupational Therapy: Eval and Treat - Allergies/Procedures Done in Hospital Allergies/Adverse Reactions: Allergies No Known Allergies Allergy (Verified 03/22/19 06:45) Procedures: 2-D Echocardiogram, EKG - Type of Care/Length of Stay Estimated LOS: Convalescent Care Less Than 30 days Type of Care Needed: Skilled Rehab Potential: Good Prognosis: Good - Additional Orders/Day of Discharge Additional Orders: (1) Continue to wean oxygen supplementation as able to room air. (2) May use BIPAP rescue as needed, but weaned off at discharge. (3) Encourage continued HOB, aspiration and fall precautions. (4) Consider start outpatient metformin low dose and taper upwards with recent HgbA1c 7.4%. (5) Urinary retention while inpatient, started on flomax, decreased at discharge to once daily but if recurrent issues may increase to twice daily again and request Urology outpatient evaluation. (6) Aggressive IS 10x/hr 7a-7p H&P will serve as current which was dated: 03/22/19 Day of Discharge: 03/25/19 - Dietary and Speech Recommendations Dietitian Recommendations/Changes: Rec continue liberal Regular diet d/t s/s of malnutrition. Will order ONS medpass for increased nutrition if consumed - Follow Up Care Primary Care Physician: Mohamud Guzman MD [Primary Care Provider] - Please follow up with your Primary Care Physician in: Follow-up within 3-5 days of hospital discharge and 1-2 days SNF discharge.
--- NOTE | 2019-03-25 11:48 | PCM.DC.SUM ---
Discharge Date and Diagnosis - Problem List Patient Problems: Active and Suspected Problems (Last Reviewed 03/18/19 @ 09:31 by Nhi Lee) Acute respiratory failure with hypoxia (Acute) CAP (community acquired pneumonia) (Acute) Atrial fibrillation with rapid ventricular response (Acute) Sepsis due to pneumonia (Acute) Severe sepsis (Acute) Date of Admission: 03/22/19 Date of Discharge: 03/25/19 - Primary Discharge Diagnosis Active and Suspected Problems (Last Reviewed 03/18/19 @ 09:31 by Nhi Lee) 1. Acute Septic Shock secondary to Acute Hypoxic Respiratory Failure secondary to LLL CAP and Acute Parainfluenza 4 2. Paroxsymal atrial fibrillation w/ RVR 3. Acute on Chronic Diastolic CHF 4. Urinary retention 4. Diabetes mellitus type II 5. CAD 6. Multiple Myeloma 7. Pancytopenia, Chronic 8. Hx Thyroid CA 9. Hx Large cell neuroendocrine CA 10. Hypertension 11. Hyperlipidemia 12. Hypothyroidism 13. 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 tumor KRAS mutated. 06/2016 left upper lobectomy and LN dissection (per note from Dr Nicolas) Hospital Course and Treatment Dr. Alas Pulmonary/ICU Operations: None Procedures: 2-D Echocardiogram, EKG Summary of Care Provided: The patient is a 71 y/o M w/ PMHx: PAF, CAD, HTN, HLD, Hx Thyroid CA, Hx Large cell neuroendocrine CA s/p 04/06 wedge resection JOSE w/ 06/2016 JOSE lobectomy and LNDx, Multiple Myeloma who presented to the [facility] ED on 03/22/19 with history of worsening dyspnea with non-productive cough and palpitations. Admitted to the ICU, maintained on cardiac monitoring, continued IVF bolus per protocol with LA trending w/ initial 3.9-->repeat 2.5, continued initially on IV rocephin (end date 03/29/19) and azithromycin (end date 03/27/19), maintained on IV solumedrol with prednisone transition, Legionella and streptococcal antigens negative, blood culture per ED with no growth to date, respiratory viral panel with positive parainfluenza, sputum culture with preliminarily normal jennie, BIPAP initially, transitioning off w/ PRN needs, improved w/ 03/23/19 ICU-->PCU status, PT/OT/case management consultations w/ SNF needs identified and set-up. Of note, EKG in ED w/ atrial fibrillation w/ RVR. Held off on Cardizem and metoprolol initially secondly to hypotension, maintained on telemetry, cardiac enzyme serial set < 0.015 x 3, BNP 107.6, ECHO w/ normal LV size, EF 50%, mildly enlarged LA, stage I diastolic dysfunction, mild TBI, PASP 33 mmHg global longitudinal strain mildly abnormal, and free T4 normal, continued on eliquis with restart home rate agents once BP improved. Upon ED presentation, also noted mildly elevated BNP, initial concern for overload noted per ICU physician, could have been result of prolonged atrial fibrillation with RVR. Lasix 40 mg IV x 1 administered per ICU and had no further concerns for overload. During admission had episodes of urinary retention, 12-03/23 overnight urinary retention, Munoz catheter placed, 03/23/19 initiated twice daily Flomax w/ ICU d/c munoz in AM; however, ongoing retention w/ munoz replacement, successful removal 03/24/19 with single daily dosing transition at discharge to SNF. Obtained Hemoglobin A1c, 7.4%, nutrition consultation for education and teaching with hold on metformin addition with addition outpatient if not improved per discussion with patient. Patient given clinical improvement and clearance per Pulmonary discharged to SNF in stable, improved condition, with ongoing oxygen supplementation with recommendation for wean as appropriate, steroid taper, and robotic therapy to completion date, aerosols with follow-up with his PCP as well as pulmonary for reassessment and repeat CBC and BMP within 1 week. DAY OF DISCHARGE PROGRESS NOTE: Subjective: Patient without acute event overnight per self and nursing report. Patient still admits he feels very weak but clinically notes that he has been improving. He denies any severe dyspnea or market cough, even improved since day prior and he is able to sit up on the side of the bed without any lightheadedness. Patient denies fever, chills, nausea, emesis, abdominal pain, chest pain. Patient agreeable to discharge to SNF given his weakness, debility. Patient will be discharged with follow-up with primary care physician within 3-5 days as well as follow-up within 1 to 2 days of SNF discharge in addition to follow-up within 2 to 4 weeks with pulmonary for reassessment. Objective: [] Physical Examination: General: awake, alert, oriented x 3 and cooperative, seated upright at the bedside chair, improved appearance, no coughing during the entire exam and discussions. Skin: normal color, turgor, no icterus, cyanosis. HEENT: AT/NC, EOMI, PERRLA, improved MMM. Lungs: Diminished breath sounds, greater bases, currently no rales, resolving rhonchi, no wheezing, improved from day prior. Heart: Regular rate and rhythm; no gallop, rub audible. Abdomen: soft, obese, NTTP, ND, normal BS. Extremities: no cyanosis, clubbing, minimal bilateral lower extremity ankle edema, nonpitting, improved. Neurological: patient awake, alert, oriented x 3; cognitive function intact; pupils equally reactive to light and accomodation; cranial nerves II-XII grossly normal, moving all 4 extremities, no focal deficits, strength improving but remains moderately to severely global decrease secondary to acute presentation. Psychiatric: affect appears less fatigued, normal, no acute evidence of depressive or anxiety feelings. Assessment and Plan: Please see hospital summary above. Patient Problems: Active and Suspected Problems (Last Reviewed 03/18/19 @ 09:31 by Nhi Lee) Acute respiratory failure with hypoxia (Acute) CAP (community acquired pneumonia) (Acute) Atrial fibrillation with rapid ventricular response (Acute) Sepsis due to pneumonia (Acute) Severe sepsis (Acute) - Physical Exam Vitals/I&O's: Vital Signs Temp Pulse Resp BP Pulse Ox 97.2 F L 89 16 131/78 H 96 03/25/19 04:00 03/25/19 09:04 03/25/19 04:00 03/25/19 04:00 03/25/19 04:00 Oxygen Flow Rate (L/min) 3 Oxygen Delivery Method Nasal Cannula Weight: 221 lb 5.506 oz Body Mass Index (BMI) 30.7 Intake and Output for Last 24 Hours 03/23/19 03/24/19 03/25/19 23:59 23:59 23:59 Intake Total 1446 / 2211 2387 / 2387 50 / 50 Output Total 950 / 1350 2100 / 2100 225 / 225 Balance 496 / 861 287 / 287 -175 / -175 Microbiology Past 72 Hours 03/23/19 18:10 Sputum, Expectorated/Coughed Gram Stain - Final 03/23/19 18:10 Sputum, Expectorated/Coughed Respiratory Culture - Preliminary Presumptive C albicans 03/22/19 07:15 Blood Culture (Wb) - Anticubital Left Blood Culture - Preliminary No growth in 48 hours. 03/22/19 06:55 Blood Culture (Wb) - Right Wrist Blood Culture - Preliminary No growth in 48 hours. 03/22/19 13:25 Urine, Clean Catch Urine Culture - Final Culture exhibits no growth. 03/22/19 13:25 Urine, Clean Catch Streptococcus pneumoniae Antigen (M - Final 03/22/19 13:25 Urine, Clean Catch Legionella Antigen - Final 03/22/19 07:45 Interface Orders Respiratory Panel (PCR) - Final Parainfluenza 4 03/22/19 07:45 Mucosa - Nasopharyngeal Influenza Types A,B Direct FA (MELITON) - Final Laboratory Results 03/24/19 15:38: POC Glucose 195 H 03/24/19 22:23: POC Glucose 182 H 03/25/19 05:40: WBC 1.7 L, RBC 3.65 L, Hgb 11.5 L, Hct 33.9 L, MCV 92.9, MCH 31.5, MCHC 33.9, RDW Std Deviation 66.5 H, RDW Coeff of [place] 19.5 H, Plt Count 51 L, MPV 11.8, Immature Gran % (Auto) 0.600, Neut % (Auto) 34.3 L, Lymph % (Auto) 28.5, [place] % (Auto) 36.6 H, Eos % (Auto) 0.0, Baso % (Auto) 0.0, Absolute Neuts (auto) 0.6 L, Absolute Lymphs (auto) 0.49 L, Nucleated RBC % 0, Differential Comment SCANNED, Diff Path Review May foll, Anisocytosis 1+ 03/25/19 05:40: Sodium 141, Potassium 3.9, Chloride 108 H, Carbon Dioxide 29.0, Anion Gap 4 L, BUN 21 H, Creatinine 0.60 L, Estim Creat Clear Calc 67.98, Est GFR (MDRD) Af Amer 170, Est GFR (MDRD) Non-Af 140, BUN/Creatinine Ratio 35.0 H, Glucose 159 H, Calcium 6.9 L 03/25/19 06:38: POC Glucose 147 H Current Medications Acyclovir (Zovirax) 200 mg PO BID [facility] Last Admin: 03/25/19 09:05 Dose: 200 mg Documented by: Albuterol Sulfate (Ventolin Aerosols) 2.5 mg INHALATION Q2H PRN PRN PRN Reason: dyspnea, wheezing Albuterol/Ipratropium (Duoneb) 3 ml INHALATION Q4H.RT PRN PRN Reason: WHEEZING Allopurinol (Zyloprim) 300 mg PO DAILY [facility] Last Admin: 03/25/19 09:05 Dose: 300 mg Documented by: Apixaban (Eliquis) 5 mg PO BID [facility] Last Admin: 03/25/19 09:04 Dose: 5 mg Documented by: Atorvastatin Calcium (Lipitor) 40 mg PO QHS [facility] [place] Last Admin: 03/24/19 22:11 Dose: 40 mg Documented by: Calcitriol (Rocaltrol) 0.25 mcg PO DAILY [facility] Last Admin: 03/25/19 09:05 Dose: 0.25 mcg Documented by: Dextrose (D50w Syringe) 0 gm IV X1 PRN; Protocol PRN Reason: Hypoglycemia Ezetimibe (Zetia) 10 mg PO DAILY [facility] Last Admin: 03/25/19 09:05 Dose: 10 mg Documented by: Fentanyl Citrate (Sublimaze (100mcg Ampule)) 50 mcg IV Q2H PRN PRN PRN Reason: Pain Score 1-10/10 Last Admin: 03/24/19 22:19 Dose: 50 mcg Documented by: Glucagon () 1 mg IM .X1 PRN PRN Reason: Hypoglycemia Guaifenesin (Mucinex) 1,200 mg PO BID [facility] Last Admin: 03/25/19 09:04 Dose: 1,200 mg Documented by: Ceftriaxone Sodium 2 gm/ (Sodium Chloride) 50 mls @ 100 mls/hr IV Q24 DWAYNE Stop: 03/29/19 10:01 Last Infusion: 03/25/19 10:11 Dose: Infused Documented by: Azithromycin 500 mg/ Dextrose 255 mls @ 250 mls/hr IV Q24 [facility] Stop: 03/27/19 10:01 Last Admin: 03/25/19 10:10 Dose: 250 mls/hr Documented by: Calcium Gluconate 2 gm/ (Dextrose) 120 mls @ 60 mls/hr IV X1 ONE Stop: 03/25/19 13:59 Insulin Human Lispro (Humalog Kwikpen (Bkc)) 0 unit SC ACHS [facility]; Protocol Last Admin: 03/25/19 06:41 Dose: Not Given Documented by: Latanoprost (Xalatan Opthalmic) 1 drop EACH EYE QHS [facility] [place] Last Admin: 03/24/19 22:09 Dose: 1 drop Documented by: Levothyroxine Sodium (Synthroid) 150 mcg PO DAILY@0600 [facility] Last Admin: 03/25/19 06:42 Dose: 150 mcg Documented by: Lidocaine/Diphenhydr/Alum/Mg/Simeth () 10 ml PO Q3H PRN PRN PRN Reason: sore mouth, difficulty eating Last Admin: 03/23/19 17:08 Dose: 10 ml Documented by: Loratadine (Claritin) 5 mg PO DAILY [facility] [place] Last Admin: 03/25/19 09:03 Dose: 5 mg Documented by: Metoprolol Tartrate (Lopressor (Beta [place])) 25 mg PO BID [facility] Last Admin: 03/25/19 09:04 Dose: 25 mg Documented by: Non-Formulary Medication (Pomalidomide [Pomalyst]) 1 mg PO DAILY [facility] Last Admin: 03/25/19 09:06 Dose: 1 mg Documented by: Nutritional Formula (Lactose Free) (Ensure Enlive) 120 ml PO 4X/DAY [facility] [place] Last Admin: 03/25/19 09:07 Dose: 120 ml Documented by: Ondansetron HCl (Zofran) 4 mg IV Q8H PRN PRN PRN Reason: NAUSEA/VOMITING Last Admin: 03/22/19 12:43 Dose: 4 mg Documented by: Oxycodone HCl (Oxyir) 5 mg PO Q6 [facility] Last Admin: 03/25/19 06:41 Dose: 5 mg Documented by: Pantoprazole Sodium (Protonix) 40 mg PO DAILY [facility] Last Admin: 03/25/19 09:04 Dose: 40 mg Documented by: Potassium Chloride (K-Dur) 20 meq PO DAILYCM [facility] [place] Last Admin: 03/25/19 09:01 Dose: 20 meq Documented by: Prednisone () 40 mg PO DAILY@0800 [facility] [place] Last Admin: 03/25/19 10:10 Dose: 40 mg Documented by: Pregabalin (Lyrica) 50 mg PO BID [facility] [place] Last Admin: 03/25/19 09:10 Dose: 50 mg Documented by: Senna/Docusate Sodium (Senokot-S, Tamra-Colace) 1 tablet PO DAILY PRN PRN PRN Reason: CONSTIPATION Last Admin: 03/24/19 10:32 Dose: 1 tablet Documented by: Sodium Chloride () 10 - 40 ml IV UD PRN PRN Reason: SALINE FLUSH Last Admin: 03/24/19 22:25 Dose: 20 ml Documented by: Sucralfate (Carafate) 1 gm PO 1HR_ACHS [facility] [place] Last Admin: 03/25/19 06:41 Dose: 1 gm Documented by: Tamsulosin HCl (Flomax) 0.4 mg PO BID@0830,1730 [facility] Last Admin: 03/25/19 09:02 Dose: 0.4 mg Documented by: Home Medications: Medications to take at Discharge Albuterol Inhaler [Ventolin Hfa] 108 mcg INHALATION PRN PRN 12/12/18 Allopurinol [Zyloprim] 300 mg PO DAILY 12/12/18 Atorvastatin Calcium [Lipitor] 40 mg PO QHS 12/12/18 Calcitriol 0.25 mcg PO DAILY 12/12/18 Calcium 500-Vit D3 200 Tablet 2 tab PO DAILY 12/12/18 Cholecalciferol (Vitamin D3) [Vitamin D3] 2,000 unit PO DAILY 12/12/18 Desloratadine [Clarinex] 5 mg PO DAILY 12/12/18 Ezetimibe [Zetia] 10 mg PO DAILY 12/12/18 Lansoprazole [Prevacid] 30 mg PO DAILY 12/12/18 [place] 0.01% 0.01 % EACH EYE QHS 12/12/18 Nitroglycerin [Nitrostat] 0.4 mg SL PRN PRN 12/12/18 Potassium Chloride [K-Dur] 20 meq PO DAILY 12/12/18 Pregabalin [Lyrica] 50 mg PO BID 12/12/18 Vitamin B Complex [B Complex] 1 tab PO DAILY 12/12/18 Daratumumab [Darzalex] 100 mg IV QMONTH 01/10/19 Diltiazem HCl [Cardizem Cd] 360 mg PO DAILY 01/10/19 Pomalidomide [Pomalyst] 1 mg PO DAILY 01/10/19 Sucralfate [Carafate] 1 gm PO 4X/DAY #56 tab 01/10/19 Valacyclovir HCl [Valtrex] 500 mg PO DAILY 01/10/19 metoprolol tartrate 50 mg tablet 25 mg PO BID tab 01/12/19 levothyroxine 150 mcg tablet 150 mcg PO DAILY #90 tab 01/14/19 Apixaban [Eliquis] 5 mg PO BID 03/22/19 Cometriq 20 mg PO DAILY 03/22/19 Albuterol Aerosols [Ventolin Aerosols] 2.5 mg INHALATION Q2H PRN PRN vial.neb. 03/25/19 Azithromycin 500 mg PO DAILY #2 tab 03/25/19 Bmx Liquid 10 ml PO Q3H PRN PRN ml 03/25/19 Cefdinir [Omnicef [equiv]] 300 mg PO Q12H 4 Days #8 cap 03/25/19 Ensure Enlive 120 ml PO 4X/DAY liquid 03/25/19 Guaifenesin [Mucinex] 1,200 mg PO BID 10 Days tab 03/25/19 Insulin Lispro [Humalog KwikPen] See Protocol SUBCUT ACHS insuln.pen 03/25/19 Ipratropium/Albuterol Sulfate [Duoneb] 3 ml INHALATION [id number] PRN #1 box 03/25/19 Prednisone 10 mg PO UD 12 Days #30 tab 03/25/19 Senna/Docusate Sodium [Senokot-S] 1 tab PO DAILY PRN PRN tab 03/25/19 Tamsulosin HCl [Flomax] 0.4 mg PO DAILY cap 03/25/19 Following Prescrptions Were Given to Patient: Azithromycin 500 mg PO DAILY #2 tab Cefdinir [Omnicef [equiv]] 300 mg PO Q12H 4 Days #8 cap Prednisone 10 mg PO UD 12 Days #30 tab Primary Care Physician: Mohamud Guzman MD [Primary Care Provider] - Please follow up with your Primary Care Physician in: Follow-up within 3-5 days of hospital discharge and 1-2 days SNF discharge. Disposition: Shelter facility Minutes spent on discharge:: 35 Patient Condition:: Fair Medical Necessity - Tobacco Use Smoking Status: Former smoker Tobacco Use: Cigarettes Meaningful Use Info Meaningful Use Diagnoses (Choose all that apply): CHF - CHF KRISTEN/ARB ordered at discharge?: No Reason KRISTEN/ARB not ordered?: Hypotension Documented LVEF (%): 50 Code Visit Inpatient E&M: 24874 Disch Hosp
[2019-03-25] MEDS: Insulin Lispro 100 UNIT/ML INSULN.PEN SC (11:57)
[2019-03-25 12:26] LABS: Bedside Glucose 183 mg/dL (70-110)
[2019-03-25 12:35] LABS: Pathologist Review Reviewed
--- NOTE | 2019-03-25 13:49 | CASEMGMT ---
Patient is ready for d/c to [facility]. ALFREDO faxed orders to Jenniffer at [facility]. ALFREDO called [facility] this am to see if they could transport patient via wc van. They could not as their wc advanced seal delivery system is done at today. ALFREDO called Jenniffer at [facility] and asked if they would be able to pick patient up. She said they could. ALFREDO let her know family could not transport as patient is on O2 and he does not have portable because he normally is not on O2. ALFREDO notified RN, [employer], receptionist secretary, and patient. ALFREDO completed convalescent on HENS. Plan: d/c to [facility] under skilled level of care on a convalescent stay. [facility] picked patient up. Diya GILLESPIE MSW
--- NOTE | 2019-03-25 14:32 | PCM.PN.PUL ---
Subjective: Late entry Patient seen at approximately 10 AM this morning. At that time, patient was requiring 3 L nasal cannula to maintain saturations. Patient reported improvement in respiratory status, but still had an overwhelming sensation of weakness. No chest pain or hemoptysis was reported. - Physical Exam Vitals/I&O's: Vital Signs Temp Pulse Resp BP Pulse Ox 36.9 C 81 18 127/61 H 96 03/25/19 10:00 03/25/19 10:00 03/25/19 10:00 03/25/19 10:00 03/25/19 10:00 Oxygen Flow Rate (L/min) 2 Oxygen Delivery Method Nasal Cannula Weight: 100.4 kg Body Mass Index (BMI) 30.7 Intake and Output for Last 24 Hours 03/23/19 03/24/19 03/25/19 23:59 23:59 23:59 Intake Total 1446 / 2211 2387 / 2387 785 / 785 Output Total 950 / 1350 2100 / 2100 625 / 625 Balance 496 / 861 287 / 287 160 / 160 General: Alert, Oriented x3, Cooperative, No apparent distress, Well developed, Well nourished, - - Speaking in full sentences. HEENT: Atraumatic, PERRLA, EOMI, - - No scleral icterus or injection noted Oral: Moist Mucosa, No Gingival or Mucosal Lesions/ Ulcerations Neck: Supple, No JVD, No Nodes, Trachea Midline Lungs: No rhonchi, No rales, Diminished, Wheezes, - Cardiovascular: Regular rate, Regular Rhythm, Normal S1, Normal S2, No murmurs, No rub noted, No Gallop Abdomen: Bowel Sounds Present, Soft, Non Tender, Non-Distended, Obese Extremities: No clubbing, No cyanosis, Capillary Refill Less than 3 Seconds, Edema Skin: No rashes, No breakdown Musculoskeletal: No Tenderness to Palpation of Joints or Extremities Lymphatic: No Cervical, Supraclavicular, or Inguinal Adenopathy Neurological: Cranial nerves II-XII grossly intact, Neuro grossly intact, Motor Exam 5/5 strength throughout Psych/Mental Status: Flat Affect Microbiology Past 72 Hours 03/23/19 18:10 Sputum, Expectorated/Coughed Gram Stain - Final 03/23/19 18:10 Sputum, Expectorated/Coughed Respiratory Culture - Preliminary Presumptive C albicans 03/22/19 07:15 Blood Culture (Wb) - Anticubital Left Blood Culture - Preliminary No growth in 48 hours. 03/22/19 06:55 Blood Culture (Wb) - Right Wrist Blood Culture - Preliminary No growth in 48 hours. 03/22/19 13:25 Urine, Clean Catch Urine Culture - Final Culture exhibits no growth. 03/22/19 13:25 Urine, Clean Catch Streptococcus pneumoniae Antigen (M - Final 03/22/19 13:25 Urine, Clean Catch Legionella Antigen - Final 03/22/19 07:45 Interface Orders Respiratory Panel (PCR) - Final Parainfluenza 4 Laboratory Results 03/24/19 15:38: POC Glucose 195 H 03/24/19 22:23: POC Glucose 182 H 03/25/19 05:40: WBC 1.7 L, RBC 3.65 L, Hgb 11.5 L, Hct 33.9 L, MCV 92.9, MCH 31.5, MCHC 33.9, RDW Std Deviation 66.5 H, RDW Coeff of Mary [place] 19.5 H, Plt Count 51 L, MPV 11.8, Immature Gran % (Auto) 0.600, Neut % (Auto) 34.3 L, Lymph % (Auto) 28.5, [place] % (Auto) 36.6 H, Eos % (Auto) 0.0, Baso % (Auto) 0.0, Absolute Neuts (auto) 0.6 L, Absolute Lymphs (auto) 0.49 L, Nucleated RBC % 0, Differential Comment SCANNED, Diff Path Review Reviewed, Anisocytosis 1+ 03/25/19 05:40: Sodium 141, Potassium 3.9, Chloride 108 H, Carbon Dioxide 29.0, Anion Gap 4 L, BUN 21 H, Creatinine 0.60 L, Estim Creat Clear Calc 67.98, Est GFR (MDRD) Af Amer 170, Est GFR (MDRD) Non-Af 140, BUN/Creatinine Ratio 35.0 H, Glucose 159 H, Calcium 6.9 L 03/25/19 06:38: POC Glucose 147 H 03/25/19 11:56: POC Glucose 183 H Medical Necessity - Tobacco Use Smoking Status: Former smoker Tobacco Use: Cigarettes Assessment/Plan All Active Problems (Last Reviewed 03/18/19 @ 09:31 by Nhi Lee) Acute respiratory failure with hypoxia (Acute) CAP (community acquired pneumonia) (Acute) Atrial fibrillation with rapid ventricular response (Acute) Sepsis due to pneumonia (Acute) Severe sepsis (Acute) Junctional rhythm (Acute 01/10/19) History of non-ST elevation myocardial infarction (NSTEMI) (Resolved 2004) RECOMMENDATIONS: 1. Wean oxygen as tolerated 2. Reasonable to continue with BiPAP with sleep only 3. Reasonable to narrow antibiotic spectrum if blood cultures negative 4. Increase activity as tolerated 5. Okay to transition to regular diet from my perspective 6. Transition to prednisone to complete a 5-day burst IMPRESSIONS: 1. Acute hypoxic respiratory failure secondary to left lower lobe pneumonia secondary to parainfluenza virus and pneumococcus Patient with a history of a left upper lobectomy and now has a left lower lobe pneumonia. Patient is on antibiotics. Bronchodilators will likely exacerbate patient's A. fib with RVR, so we will try to avoid. Patient would likely benefit from a 5-day course of steroid therapy. If cultures negative at 48 hours, narrowing of antibiotic spectrum would be appropriate. Patient should complete a 7-day course of antibiotics. Patient can be seen as an outpatient if requested 2 weeks after discharge from rehab 2. Severe sepsis secondary to left lower lobe pneumonia Blood pressure is much improved at this time. Patient with pneumococcal antigen positive and this is likely leading to the severe sepsis. This would be treated by ceftriaxone alone. Blood pressure is not been an issue. 3. A. fib with RVR/probable diastolic CHF/coronary artery disease Patient currently with acceptable rate. Continue current therapy. Patient would benefit from gentle diuresis from a pulmonary perspective 4. Multiple cancers and history of thrombosis Patient did take his Eliquis this morning. Reasonable to continue with Eliquis for now. Chemotherapy has been discontinued at the request of oncology. 5. Diabetes mellitus Patient being placed on steroid therapy. Will need to watch blood sugars closely. Patient should have sliding scale insulin with every 6 blood sugar checks. 6. Advanced age/odynophagia/gout/GERD/obesity/hyperlipidemia/acquired hypothyroidism Complicates care, management, recovery and prognosis. Okay to use Magic mouthwash if necessary. Continue home Protonix. Code Visit Inpatient E&M: 53730 Subs Hosp L2
== END 2019-03-25 13:57 | disposition skilled nursing facility (03) | DRG 871 ==
LOC: ED 07:16 → ICU 07:51 → PCU 03-23 16:46
PROVIDERS: Internal Medicine Critical Care Medicine; Admitting Provider Student in an Organized Health Care Education/Training Program; Emergency Provider Emergency Medicine; Family Provider Family Medicine; PCP Family Medicine; Referring Provider Student in an Organized Health Care Education/Training Program; Visit Provider Family Medicine
DX: A41.89 Other specified sepsis (principal); R65.21 Severe sepsis with septic shock; J96.01 Acute respiratory failure with hypoxia; I50.33 Acute on chronic diastolic (congestive) heart failure; J12.2 Parainfluenza virus pneumonia; C90.02 Multiple myeloma in relapse; C7A.8 Other malignant neuroendocrine tumors; D61.818 Other pancytopenia; E78.5 Hyperlipidemia, unspecified; E89.0 Postprocedural hypothyroidism; E11.9 Type 2 diabetes mellitus without complications; I48.0 Paroxysmal atrial fibrillation; R33.9 Retention of urine, unspecified; I25.10 Atherosclerotic heart disease of native coronary artery without angina pectoris; I11.0 Hypertensive heart disease with heart failure; E66.9 Obesity, unspecified; K21.9 Gastro-esophageal reflux disease without esophagitis; Z68.30 Body mass index [BMI] 30.0-30.9, adult; Z86.718 Personal history of other venous thrombosis and embolism; Z85.850 Personal history of malignant neoplasm of thyroid; I25.2 Old myocardial infarction; Z87.891 Personal history of nicotine dependence; Z90.2 Acquired absence of lung [part of]; Z79.01 Long term (current) use of anticoagulants
CPT/HCPCS: 36415; 36600; 71045; 80048; 80053; 81001; 82803; 82962; 83036; 83605; 83735; 83880; 84100; 84439; 84443; 84484; 85025; 85610; 85730; 87040; 87070; 87086; 87205; 87449; 87633; 87804; 93005; 93306; 94002; 94640; 94660; 97116; 97127; 97162; 97166; 97530; 97802; 97803; 99285; J7030; J7040; J7050; Q9957; A4216; G0515; J0696; J1940; J2405

== ENCOUNTER → 2019-04-13 10:08 | Outpatient (CLI) | payer MEDICARE, BC, SELFPAY ==
[2019-03-22 09:03] VITALS: BMI 30.7
--- NOTE | 2019-04-13 10:12 | RAD_ITS ---
STUDY: X-RAY - LUMBAR SPINE REASON FOR EXAM: Male, 73 years old. Back pain TECHNIQUE: 3 view(s) of the lumbar spine were obtained. COMPARISON: None FINDINGS: Normal lumbar lordosis. There is no substantial scoliosis. There is a normal alignment of the vertebrae. There is multilevel endplate spondylosis of the lumbar vertebrae. There is multi-level degenerative disc disease with multi-level disc space narrowing. There is no demonstrated fracture. There is atherosclerotic calcification of the abdominal aorta without a demonstrated aneurysm. RAD/Lumbar Spine 2 or 3 Views IMPRESSION: Degenerative changes of the spine, as detailed above. Electronically Signed: Wong Padron MD at 16:33 EST , Service support ,
--- NOTE | 2019-04-13 10:12 | RAD_ITS ---
STUDY: X-RAY - PELVIS AND LEFT HIP REASON FOR EXAM: Male, 73 years old. Left hip pain TECHNIQUE: 3 views of the pelvis and hip. COMPARISON: None. FINDINGS: There is a non-specific bowel gas pattern. Normal visualized soft tissue structures. There is diffuse demineralization of the osseous structures. There is narrowing with cortical sclerosis and osteophyte formation of the sacroiliac joint consistent with degenerative osteoarthritic changes. Normal bilateral superior and inferior pubic rami. Normal pubic symphysis. Normal bilateral ischial tuberosities. Normal visualized femoral head. Normal acetabulum. There is mild articular joint space narrowing of the hip. RAD/HIP, UNI W/ Pelvis 2-3 Views IMPRESSION: Degenerative changes, no acute findings Electronically Signed: Wong Padron MD at 16:31 EST , Service support ,
== END ==
PROVIDERS: Family Provider Family Medicine; PCP Family Medicine; Referring Provider Family Medicine; Visit Provider Family Medicine
DX: M54.5 Low back pain (principal); M25.552 Pain in left hip
CPT/HCPCS: 72100; 73502

== ENCOUNTER 2019-05-05 09:00 | Outpatient (RCR) | payer MEDICARE, BC, SELFPAY ==
[2019-03-22 09:03] VITALS: BMI 30.7
[2019-04-16 09:18] VITALS: BMI 30.7
--- NOTE | 2019-04-21 13:58 | HP.PTEVAL_ITS ---
Patient's Visit Information CAROLINA MANN is a 73 year old M referred to Physical Therapy by Mohamud Guzman MD with a diagnosis of Left Hip and Back Pain- Multiple Myeloma. Date of Evaluation: 04/21/19 Physical Therapist: Elizabeth Venegas DPT - Visit Plan Frequency: 2x /Week Duration: 4 Weeks Plan: Focus on LE and core strength/stabilization with functional mobility. HEP 04/21/19: glut sets, HR/TR, marching, hip abduction, mini squat - Subjective Findings: Patient reports that he had pneumonia and he was in the correction and his left hip/back is bothering him- it radiates down to the leg. He has multiple myeloma- is currently off chemo but gets treatment 1x a month. Suppose to take a pill 1x a month but they have not filled it. Platelets were low- so they stopped him from taking the thyroid cancer medication. Goes back to [place] on April 30. Trying to get his medications figured out. Came home from the correction 2 weeks ago. [employer]. Fully I with driving and ADL's and lives alone. No stairs to enter or when inside. No AD at this time but does have access to it. Has had back pain and left leg pain for a long time-months- feels that pain does not change- Eases: sleep and Aleve Best: 0/10. Pain is constant when he is awake. Agg: physical therapy, movement. stepping on the left foot. Worst: 8/10. Radiates to the ankle. Describes the pain as dull and achy. No N/T. No buckling or giving out of the knee. No falls. Feels the pain starts in the hip and radiates from there. Is happiest in the reclyner- can get into a position that does not hurt. 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 No steriod injections of the hip or back. Has had loss and change of bowel and bladder-MD's are aware. Goals for PT: walk without pain. When he takes the first step the pain is immediate. Dimnishes when he sits down. Sleep: disturbed- side sleeper. PMHx/Meds: see chart- most notable Mulitple Myleoma and Thyroid cancer- all other history in the chart. - Objective Posture: FH, RS, increased kyphosis- can correct with verbal and tacile cues but does not maintain. Gait: antalgic- decreased stance on the left LE with poor heel/toe pattern with decreased domenica. HR/TR: able with UE A. Sensation/Reflex: WFL. Stairs: asc/desc 8 non recip with 2 HR. SLS: WS But unable to SLS. ROM: lumbar: hands to knees, extn: neutral, SB: decreased by 50% Rot: decreased by 50% pain in all motions. Hip/Knee/Ankle: WNL. Strength: Core: poor, Hip: 4-/5 throughout, KNee: 5/5, Ankle: 5/5- sit to stand requires bilateral UE A and is slow. Flex: HS: severe, Gastroc: severe - Goals Goal 1:: Patient will be I with HEP and progression Goal Time Frame: 4-6 Weeks Goal 2:: Patient will sit to stand x10 in 30 seconds Goal Time Frame: 4-6 Weeks Goal 3:: Patient will asc/desc 8 stairs recip Goal Time Frame: 4-6 Weeks Goal 4:: Patient will report 2/10 pain for 1 week Goal Time Frame: 4-6 Weeks Goal 5:: Patient will maintain proper posture t/o tx session to demo increased core s/s. Goal Time Frame: 4-6 Weeks - Rehabilitation Potential Physical Therapy Diagnosis: Patient presents with hypomobility- he has debilility, decreased strength, flex and muscular endurance leading to abnormal gait and decreased ability to perform ADL's. Rehabilitation Potential: Fair - Anticipated Interventions Patient/Client Instruction: Educate patient on: Benefits of Fitness Program Therapeutic Exercise to Include: Strength training, Endurance training, Balance training, Coordination, Agility training, Body mechanics, Postural training, Flexibilty training, Gait and locomotor training, Dynamic Lumbar Stabilization For the Purpose of:: To improve muscle performance and motor function Cryotherapy (ice pack, ice massage): Yes Thermo therapy (hot pack): Yes Ultrasound (thermal/non thermal): No For the Purpose of:: To decrease pain Thank you for the opportunity to evaluate your patient. For Medicare and Medicare HMO plans, please review the plan of care and approve it. It will need to be FAXED BACK to us at [phone] for Medicare purposes. For Medicare only, by signing this I certify the plan of care. Please let me know if there are questions or concerns regarding this plan of care. Physician Signature: Date:
--- NOTE | 2019-09-01 10:31 | HP.PT.NRP ---
CAROLINA MANN was seen in my office for initial evaluation on 04/21/19. The following Plan of Care was established for this patient: Initial Frequency: 2x /Week Initial Duration: 4 Weeks Patient/Client Instruction: Educate patient on: Benefits of Fitness Program Therapeutic Exercise to Include: Strength training, Endurance training, Balance training, Coordination, Agility training, Body mechanics, Postural training, Flexibilty training, Gait and locomotor training, Dynamic Lumbar Stabilization For the Purpose of:: To improve muscle performance and motor function Cryotherapy (ice pack, ice massage): Yes Thermo therapy (hot pack): Yes Ultrasound (thermal/non thermal): No For the Purpose of:: To decrease pain This patient was last seen in our office . Pertinent comments regarding their Physical therapy will appear below: Patient has not attended physical therapy in over 8 weeks- appropriate for d/c and return to MD as appropriate. At this point I will be discontinuing this patient from physical therapy. I would be happy to see this patient again in the future if found appropriate by the physician. Thank you! VISHAL SoriaT
== END 2019-05-05 19:00 | disposition home or self-care (01) ==
LOC: PT 09:00
PROVIDERS: Family Provider Family Medicine; PCP Family Medicine; Referring Provider Family Medicine; Visit Provider Family Medicine
DX: M54.9 Dorsalgia, unspecified (principal); M25.552 Pain in left hip; C90.00 Multiple myeloma not having achieved remission
CPT/HCPCS: 97110; 97162

== ENCOUNTER 2019-05-14 10:09 | Emergency (ER) | payer MEDICARE, BC, SELFPAY ==
[2019-05-14 09:34] VITALS: BMI 30.1
[2019-05-14 10:11] VITALS: BP 83/60; PULSE 76; PULSE 79; RESP 16; RESP 18; TEMP 36.4; O2SAT 97; O2SAT 98; BMI 31.0
--- NOTE | 2019-05-14 10:30 | ED.DCSUM_ITS ---
History of Present Illness Chief Complaint: Hypotension Informant: Patient, Family Onset: Weeks Narrative: Patient presents from Dr. Barahona's office secondary to hypotension. He is currently being treated for multiple myeloma and neuroendocrine carcinoma. Family states over the past month whenever he has his blood pressure checked it is noted to be low in the 80s and 90s. Patient has had intermittent lightheadedness. He denies near syncope. He denies having any falls. 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 tumor KRAS mutated. 06/2016 left upper lobectomy and LN dissection (per note from Dr Nicolas) (5) Multiple myeloma in relapse Status: Chronic (6) Paroxysmal atrial fibrillation Status: Chronic (7) Thyroid cancer Status: Chronic (8) History of non-ST elevation myocardial infarction (NSTEMI) Status: Resolved (9) Coronary artery disease Status: Chronic Past Medical History - Allergies and Home Meds Allergies/Adverse Reactions: Allergies No Known Allergies Allergy (Verified 05/14/19 10:10) Primary Care Physician: Mohamud Guzman MD [Primary Care Provider] - Doctors: Dr Barahona Prior records reviewed: Yes Smoking Status: Former smoker Review of Systems General: Denies: Chills, Fever Eyes: Denies: Visual changes - bilaterally ENT: Denies: Bilateral ear pain Cardiovascular: Denies: Chest pain, Palpitations Respiratory: Denies: Dyspnea, Cough Gastrointestinal: Denies: Abdominal pain, Nausea, Vomiting, Diarrhea Genitourinary: Denies: Frequency Musculoskeletal: Denies: Back pain, Extremity Pain Skin: Denies: Rash Neurological: Reports: Weakness - Generalized weakness. Denies: Headache Endocrine: Denies: Polyuria Allergy: Denies: Uticaria Physical Exam Vital Signs/Narrative: Vital Signs Temp Pulse Resp BP Pulse Ox 05/14/19 10:11 97.5 F L 76 18 83/60 L 98 Inital Vital Signs reviewed: Yes General: Well nourished, Well developed Head: Normocephalic ENT: Moist mucous membranes Neck: Supple Cardiovascular: Regular rate, Regular rhythm Respiratory: No distress, CTA bilaterally Abdomen: Soft, Nontender Extremities: Nontender Skin: Normal color, No rash Neurological: Alert, Oriented x3, - - No focal neuro deficits. Psychological: Normal affect Diagnostic/Tx/Re-eval Laboratory Results 05/14/19 12:59 Urine Color Brianna Urine Clarity Cloudy Urine pH 5.0 Ur Specific [place] 1.025 Urine Protein 30 H Urine Glucose (UA) Normal Urine Ketones 5 H Urine Occult Blood Negative Urine Nitrite Negative Urine Bilirubin 6 H Urine Urobilinogen 1 H Ur Leukocyte Esterase 25 H Urine RBC 0 SEEN Urine WBC 0-5 SEEN Ur Squamous Epith Cells 0-5 SEEN Calcium Oxalate Crystal RARE Urine Bacteria RARE Urine Mucus 1+ - Medical Decision Making Patient had lab work drawn at his oncology appointment this morning. His hemoglobin is 12.3 which is consistent with his baseline. White count is 8.4. His renal function today's reveals a BUN of 23 and a creatinine 1.75. Prior creatinine values were 0.76 - 0.92. Patient is currently receiving his second liter of IV fluid. His systolic blood pressures have been between 100-115 after IV fluids. Patient has not had near syncope or falls. He will be instructed to increase fluids. I will write him a prescription to have his blood work rechecked on Saturday and this will be sent to Dr. Barahona. ED Disposition - Plan for ED Patient: Disposition: Home or Assisted Living Diagnosis: Renal insufficiency Instructions: Renal Insufficiency, HYPOTENSION, All Causes Referrals: Mohamud Guzman MD [Primary Care Provider] - Alex Barahona MD [NON-STAFF] - Additional Instructions: Have your labs repeated on May 18.
[2019-05-14] MEDS: 0.9% Normal Saline 1,000 ML 1000 ML IV (11:04)
[2019-05-14] MEDS: oxyCODONE 5 MG Tablet PO (11:10)
[2019-05-14] MEDS: morphine SR 15 MG Tablet PO (11:23)
[2019-05-14 13:06] LABS: Red Blood Cells-Urine 0 SEEN /hpf (0-5)
[2019-05-14 13:09] VITALS: BP 109/65; PULSE 78; RESP 17; O2SAT 96
[2019-05-14 13:18] LABS: Color, Urine Amber (Yellow); Glucose, Dipstick Normal (Normal); Ketone-Dipstick 5 mg/dl (Negative); Leukocyte Esterase-Dipstick 25 /ul (Negative); Nitrite-Dipstick Negative (Negative); Occult Blood-Urine Negative /ul (Negative); Protein-Dipstick 30 mg/dl (Negative); Specific Gravity, Urine 1.025 (1.002-1.030); Urine Clarity Cloudy (Clear); Urine Urobilinogen 1 mg/dl (Normal)
[2019-05-14 13:20] LABS: Urine Bilirubin Dipstick 6 mg/dL (Negative)
[2019-05-14] MEDS: 0.9% Normal Saline 1,000 ML 999 ML IV (13:23)
[2019-05-14 13:32] LABS: Bacteria RARE /hpf (None Seen); Mucous, Urine 1+ /hpf (<or=2+); Squamous Epithelial Cells - UA 0-5 SEEN /hpf (0-5); White Blood Cells 0-5 SEEN /hpf (0-5)
[2019-05-14 13:33] LABS: Calcium Oxalate Crystals Ur RARE /hpf (<or=2+)
[2019-05-14 15:02] VITALS: BP 106/66; PULSE 74; RESP 16; O2SAT 95
== END 2019-05-14 15:22 | disposition home or self-care (01) ==
PROVIDERS: Emergency Provider Emergency Medicine; PCP Family Medicine
DX: N28.9 Disorder of kidney and ureter, unspecified (principal); C90.02 Multiple myeloma in relapse; C7A.8 Other malignant neuroendocrine tumors; I10 Essential (primary) hypertension; E78.5 Hyperlipidemia, unspecified; I48.0 Paroxysmal atrial fibrillation; I25.2 Old myocardial infarction; I25.10 Atherosclerotic heart disease of native coronary artery without angina pectoris; Z85.850 Personal history of malignant neoplasm of thyroid; Z86.718 Personal history of other venous thrombosis and embolism; Z79.02 Long term (current) use of antithrombotics/antiplatelets; Z79.891 Long term (current) use of opiate analgesic; Z79.899 Other long term (current) drug therapy; Z87.891 Personal history of nicotine dependence
CPT/HCPCS: 80053; 81001; 82784; 83883; 84550; 85025; 86334; 96360; 96361; 99285; J7030

== ENCOUNTER → 2019-05-18 11:51 | Outpatient (CLI) | payer MEDICARE, BC, SELFPAY ==
[2019-04-16 09:18] VITALS: BMI 30.7
[2019-05-14 10:11] VITALS: BMI 31.0
[2019-05-18 13:59] LABS: Anion Gap 8 (5-15); BUN 26 mg/dL (7-18); BUN/Creat Ratio 20.8 RATIO (10-20); Calcium,Total 8.9 mg/dL (8.5-10.1); Chloride 102 mmol/L (98-107); Creatinine, Serum 1.25 mg/dL (0.70-1.30); EST Glomerular Filtration Rate 60 mL/min (>60); Est Glom Filt Rate - Afr Amer 72 mL/min (>60); Glucose 95 mg/dL (74-106); Potassium 4.4 mmol/L (3.5-5.1); Sodium Level 133 mmol/L (136-145)
== END ==
PROVIDERS: Emergency Medicine; Family Provider Family Medicine; PCP Family Medicine; Referring Provider Internal Medicine Pulmonary Disease; Visit Provider Internal Medicine Pulmonary Disease
DX: J18.9 Pneumonia, unspecified organism (principal); N17.9 Acute kidney failure, unspecified
CPT/HCPCS: 36415; 80048

== ENCOUNTER 2019-05-20 09:12 | Emergency (ER) | payer MEDICARE, BC, SELFPAY ==
[2019-05-20 08:38] VITALS: BMI 30.4
[2019-05-20 09:14] VITALS: BP 123/74; PULSE 95; RESP 20; TEMP 36.6; O2SAT 99; BMI 30.4
--- NOTE | 2019-05-20 09:32 | EKG12_ITS ---
Test Reason : GEN ILLNESS Blood Pressure : / mmHG Vent. Rate : 094 BPM Atrial Rate : 094 BPM P-R Int : 164 ms QRS Dur : 098 ms QT Int : 360 ms P-R-T Axes : 041 042 037 degrees QTc Int : 450 ms Normal sinus rhythm Low voltage QRS Borderline ECG Confirmed by AJAY FORTE, YASMANY ([id number]), associate entertainment editor RAMAN BURGOS ([id number]) on 05/22/2019 1:09:01 PM Referred By: THOMAS Confirmed By:MARIE MOSS MD
[2019-05-20] MEDS: 0.9% Normal Saline 1,000 ML 150 ML IV (10:15)
--- NOTE | 2019-05-20 10:20 | RAD_ITS ---
STUDY: X-RAY CHEST REASON FOR EXAM: Male, 73 years old. CHEST/RIB PAIN, AFIB, H/O [place]; -- LUNG, THYROID, MULTIPLE MYELOMA, MEDULLARY THYROID CA TECHNIQUE: Single AP portable view of the chest. COMPARISON: Comparison is made with prior study dated March 22, 2019. FINDINGS: EKG electrodes are seen. The previously seen left basilar infiltrate has cleared. Mild residual increased linear markings are seen in the right midlung as well as the left base suggestive of scarring. There is no demonstrated pleural abnormality. Normal size heart. Normal mediastinum and ramos. Normal visualized pulmonary arteries. There is atherosclerotic tortuosity of the aortic arch and descending thoracic aorta. There are diffuse degenerative changes of the visualized thoracic spine. Normal visualized ribs, clavicles, and shoulders. There is no demonstrated abnormality of the visualized soft tissue structures of the upper abdomen. RAD/Chest 1 View (Portable) IMPRESSION: Clearing of the left basilar infiltrate. Mild residual linear markings at the lung bases suggestive of scarring. Electronically Signed: Keyon Saravia, at 10:38 EST , Service support ,
[2019-05-20 10:28] LABS: Absolute Lymphocyte Count 0.83 X10^3/uL (0.83-4.51); Absolute Neutrophil Count 1.8 X10^3/uL (2.0-7.7); Basophil# 0.02 X10^3/uL; Basophil% 0.5 % (0-1); Eosinophil# 0.05 X10^3/uL; Eosinophils% 1.4 % (0-5); Hematocrit 33.8 % (40-54); Hemoglobin 11.5 g/dL (13.0-16.5); Lymphocyte # 0.83 X10^3/ul (4.0); Lymphocyte % 22.7 % (19-41); Mean Corpuscular Hgb 32.1 pg (27.0-32.0); Mean Corpuscular Volume 94.4 fL (80-94); Mean Platelet Vol. 9.6 fl (6.2-12.0); Monocyte% 24.7 % (0-10); NRBC Flagged by Analyzer 0 % (0-5); Neutrophil # 1.83 X10^3/uL (2.7-7.7); Neutrophil % 50.2 % (47-70); Platelet Count 143 K/mm3 (150-450); RBC Distribution Width CV 14.7 % (11.6-14.6); RBC Distribution Width SD 51.8 fl (35.1-43.9); Red Blood Count 3.58 M/mm3 (4.6-6.2); White Blood Count 3.7 K/mm3 (4.4-11.0)
[2019-05-20 10:46] LABS: ALB/GLOB Ratio 0.6 RATIO (0.9-2.4); AST(SGOT) 21 U/L (15-37); Alanine Aminotransfer ALT/SGPT 33 U/L (16-61); Albumin, Serum 2.3 g/dL (3.2-5.0); Alkaline Phosphatase 231 U/L (45-117); Anion Gap 8 (5-15); BUN 19 mg/dL (7-18); BUN/Creat Ratio 20.9 RATIO (10-20); Calcium,Total 8.3 mg/dL (8.5-10.1); Chloride 106 mmol/L (98-107); Creatinine, Serum 0.91 mg/dL (0.70-1.30); EST Glomerular Filtration Rate 86 mL/min (>60); Est Glom Filt Rate - Afr Amer 104 mL/min (>60); Globulin 3.7 g/dL (2.2-4.2); Glucose 94 mg/dL (74-106); Potassium 4.3 mmol/L (3.5-5.1); Sodium Level 135 mmol/L (136-145)
[2019-05-20 11:01] LABS: Lactic Acid 1.2 mmol/L (0.4-1.9)
[2019-05-20 11:11] LABS: Mucous, Urine 0 SEEN /hpf (<or=2+); Red Blood Cells-Urine 0 SEEN /hpf (0-5)
[2019-05-20 11:13] LABS: LDH 148 U/L (87-241)
[2019-05-20 11:15] LABS: Color, Urine Yellow (Yellow); Glucose, Dipstick Normal (Normal); Ketone-Dipstick 50 mg/dl (Negative); Leukocyte Esterase-Dipstick Negative /ul (Negative); Nitrite-Dipstick Negative (Negative); Occult Blood-Urine Negative /ul (Negative); Protein-Dipstick 30 mg/dl (Negative); Specific Gravity, Urine 1.015 (1.002-1.030); Urine Clarity Sl. Cloudy (Clear); Urine Urobilinogen 1 mg/dl (Normal)
[2019-05-20 11:16] LABS: Urine Bilirubin Dipstick 3 mg/dL (Negative)
[2019-05-20 11:22] LABS: White Blood Cells 0-5 SEEN /hpf (0-5)
[2019-05-20 11:23] LABS: Bacteria RARE /hpf (None Seen); Squamous Epithelial Cells - UA 0-5 SEEN /hpf (0-5)
--- NOTE | 2019-05-20 12:02 | ED.DCSUM_ITS ---
- ER Visit Summary Date of Service: 05/20/19 Chief Complaint: [Weakness] History of Present Illness: The patient is a 73 M [presents to the emergency department generalized weakness for over 3 months. Patient was referred to the emergency department by his oncologist today. Patient was scheduled to have c hemotherapy however they had a hard time starting his IV. Patient had complained of some chills and there was concern about possible infectious etiology for his generalized weakness. Patient states that he second of a slow decline over the last 3 months. He denies any fevers. He denies any cough. He does state that he is got decreased appetite and just generally feels weak. 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 Patient did receive the flu vaccine this year. He denies urinary symptoms. Patient has history of coronary artery disease, hypertension, high cholesterol, multiple myeloma, A. fib, thyroid cancer, neuroendocrine carcinoma, and history of DVT. Patient is currently on Eliquis.] Physical Examination: [HEENT-PERRLA, EOMI. Cranial nerves II through XII grossly intact. TMs clear. Mucous membranes moist. No adenopathy. Cardiovascular-regular rate and rhythm without murmur or ectopy Lungs-clear to auscultation, chest wall stable without crepitus or subcu emphysema Abdomen-normoactive bowel sounds, soft, nontender, no rebound or rigidity, no peritoneal signs. Extremities-intact ?4, normal range of motion, normal pulses, atraumatic] Test Results: [EKG obtained on arrival shows sinus rhythm with a ventricular rat e of 94 bpm with no acute ST segment changes. CBC with differential showing a 3.7, hemoglobin 11.5, hematocrit 34, plates 143. Chemistries unremarkable. LFTs unremarkable. LDH was 148. Troponin is less than 0.015. Influenza screen was negative. Chest x-ray showed clearing of left basilar infiltrate otherwise nothing acute.] Emergency Department Course and Treatment: [Patient received a liter normal same fluid bolus.] Treatment Plan: [Patient was discussed with Rosaline Anglin who was covering for Dr. Barahona and they will contact patient to arrange further chemo treatments.] Disposition: [Discharged home in stable condition] Impression: [Generalized weakness-etiology uncertain] This note was generated with Dragon dictation software. It may contain incorrect words, spelling, and punctuation that were not noted in review of the chart prior to signing ED Disposition - Plan for ED Patient: Referrals: Mohamud Guzman MD [Primary Care Provider] -
--- NOTE | 2019-05-20 12:06 | ED.DEP ---
ED Disposition - Plan for ED Patient: Instructions: WEAKNESS, Unk Cause Referrals: Mohamud Guzman MD [Primary Care Provider] - 3-5 Days Additional Instructions: Dr. Barahona's office will contact you to arrange further treatment
[2019-05-20 12:21] VITALS: BP 140/85; RESP 19; O2SAT 95
== END 2019-05-20 12:22 | disposition home or self-care (01) ==
LOC: ED 10:03
PROVIDERS: Emergency Provider Emergency Medicine; PCP Family Medicine
DX: R53.1 Weakness (principal); C90.00 Multiple myeloma not having achieved remission; C79.89 Secondary malignant neoplasm of other specified sites; C79.51 Secondary malignant neoplasm of bone; I10 Essential (primary) hypertension; I25.10 Atherosclerotic heart disease of native coronary artery without angina pectoris; Z86.718 Personal history of other venous thrombosis and embolism; Z45.2 Encounter for adjustment and management of vascular access device
CPT/HCPCS: 36415; 71045; 80053; 81001; 83605; 83615; 84484; 84550; 85025; 87040; 87804; 93005; 96360; 96361; 99284; J7030; A4216